=== PATIENT | male | born 1950 | race Caucasian/White ===

== ENCOUNTER 2018-03-13 09:47 | Inpatient (IN) | payer BC, OTHER ==
--- NOTE | 2018-03-13 10:24 | CPEKG ---
Heart Rate: 125 RR Interval: 480 QRSD Interval: 90 QT Interval: 300 QTC Interval: 433 QRS Grawn: 36 T Wave Grawn: 179 EKG Severity - ABNORMAL ECG - EKG Impression: A-FLUTTER W/ PREDOM 2:1 AV BLOCK, A-RATE 272 Electronically Signed By: Lamont Bell 14-Mar-2018 22:17:36
[2018-03-13 10:37] LABS: PLATELET COUNT 271 10^3/uL (150-400)
--- NOTE | 2018-03-13 10:37 | EDPHY ---
HPI/HX/ROS/PE/MDM Narrative: CHIEF COMPLAINT: "I haven't felt good all week," cough HPI: The patient is an anticoagulated 68 y/o male with a history of atrial fibrillation and COPD complaining of malaise and severe cough for the last week. He arrived here from [place] Saturday, 2 days ago. His symptoms have become progressively worse and last night he was "coughing all night and my lungs are rattling." He feels off-balance when walking and has felt feverish. He denies abdominal pain, vomiting, diarrhea, chest pain, urinary symptoms. REVIEW OF SYSTEMS: Aside from elements discussed in the HPI, a comprehensive 10-point review of systems was reviewed and is negative. PMH: Atrial fibrillation - warfarin, sleep apnea - CPAP, COPD, bladder cancer, kidney cancer, nephrectomy, gout, L hip replacement, R knee replacement SOCIAL HISTORY: . From [place], arrived Saturday. PHYSICAL EXAM: General:Patient is alert, in no acute distress. Obese. HR 127, SpO2 88% on room air, BP 93/54. ENT:Eyes are normal to inspection. ENT inspection normal. Neck: Normal inspection. Full range of motion. Respiratory:No respiratory distress. Mild expiratory wheezing bilaterally. Cardiovascular: Tachycardic irregular rate and rhythm. Strong peripheral pulses. Normal cap refill. Abdomen:The abdomen is nontender to palpation. There are no peritoneal signs. Back: Normal to inspection. No tenderness to palpation. Skin: Normal color. No rash. Warm and dry. Extremities: Normal appearance. Full range of motion. Neuro: Oriented x3. Normal motor function. Normal sensory function. ED Course: This is a 68 y/o male with a history of atrial fibrillation and COPD who presents with a 1-week history of malaise and cough progressively worsening since onset. He feels feverish and generally fatigued. He has mild expiratory wheezing bilaterally and a tachycardic irregular heart rate. Suspect infectious pulmonary process. Plan for IV, labs, EKG, chest x-ray. Chest x-ray: ARACELIS pneumonia He rules in for severe sepsis with tachycardia, hypotension, elevated WBC, and source of infection. He remains afebrile here. 1gm IV Ceftriaxone and IV NS bolus ordered. Spoke with hospitalist service. Dr. Freed accepts admission for pneumonia and severe sepsis. - Data Points Imaging Results: Imaging Impressions Chest X-Ray 03/13/18 10:29 Impression: 1. Left upper lobe pneumonia. Follow-up radiography is recommended to ensure clearing, and exclude an underlying mass. 2. Borderline CHF. Imaging: I viewed and interpreted images myself Laboratory Results: Laboratory Results 03/13/18 10:19 03/13/18 03/13/18 03/13/18 10:20 10:19 10:19 WBC 15.84 10^3/uL H 10^3/uL (3.80-9.50) RBC 4.37 10^6/uL L 10^6/uL (4.40-6.38) Hgb 13.3 g/dL L g/dL (13.7-17.5) Hct 39.0 % L % (40.0-51.0) MCV 89.2 fL fL (81.5-99.8) MCH 30.4 pg pg (27.9-34.1) MCHC 34.1 g/dL g/dL (32.4-36.7) RDW 15.0 % % (11.5-15.2) Plt Count 271 10^3/uL 10^3/uL (150-400) MPV 10.4 fL fL (8.7-11.7) Neut % (Auto) 85.6 % H % (39.3-74.2) Lymph % (Auto) 5.5 % L % (15.0-45.0) [place] % (Auto) 7.8 % % (4.5-13.0) Eos % (Auto) 0.0 % L % (0.6-7.6) Baso % (Auto) 0.1 % L % (0.3-1.7) Nucleat RBC Rel Count 0.0 % % (0.0-0.2) Absolute Neuts (auto) 13.56 10^3/uL H 10^3/uL (1.70-6.50) Absolute Lymphs (auto) 0.87 10^3/uL L 10^3/uL (1.00-3.00) Absolute Monos (auto) 1.23 10^3/uL H 10^3/uL (0.30-0.80) Absolute Eos (auto) 0.00 10^3/uL L 10^3/uL (0.03-0.40) Absolute Basos (auto) 0.02 10^3/uL 10^3/uL (0.02-0.10) Absolute Nucleated RBC 0.00 10^3/uL 10^3/uL (0-0.01) Immature Gran % 1.0 % % (0.0-1.1) Immature Gran # 0.16 10^3/uL H 10^3/uL (0.00-0.10) Sodium Pending Potassium Pending Chloride Pending Carbon Dioxide Pending Anion Gap Pending BUN Pending Creatinine Pending Estimated GFR Pending Glucose Pending Calcium Pending POC Troponin I 0.02 ng/mL ng/mL (0.00-0.08) Point of Care Test Results: Chemistry 03/13/18 10:20 POC Troponin I 0.02 ng/mL ng/mL (0.00-0.08) General Time Seen by Provider: 03/13/18 10:17 Initial Vital Signs: Initial Vital Signs Temperature (C) 37.5 C 03/13/18 09:59 Heart Rate 127 H 03/13/18 09:59 Respiratory Rate 24 H 03/13/18 09:59 Blood Pressure 93/54 L 03/13/18 09:59 O2 Sat (%) 88 L 03/13/18 09:59 O2 Delivery Mode Room Air O2 (L/minute) 2 Allergies/Adverse Reactions: No Known Allergies Allergy (Unverified 03/13/18 09:56) Departure - Departure Disposition: [facility] Inpatient Acute Clinical Impression: Severe sepsis, Hypoxemia Pneumonia Qualifiers: Pneumonia type: due to unspecified organism Laterality: left Lung location: upper lobe of lung Qualified Code(s): J18.1 - Lobar pneumonia, unspecified organism Condition: Fair Referrals: JONATHAN GRANT [Other] - As per Instructions Report Scribed for: Lamont Bell Report Scribed by: Iris Ochoa Date of Report: 03/13/18 Time of Report: 10:18 Physician Review and Approval Statement: Portions of this note were transcribed by an ED scribe. I personally performed the history, physical exam, and medical decision making; and confirm the accuracy of the information in the transcribed note.
[2018-03-13] MEDS ORDERED: NS 2,900 ML IV ONE (10:52)
[2018-03-13] MEDS ORDERED: ONDANSETRON DISINTEGRATING 4 MG TAB PO PRN (11:36)
[2018-03-13] MEDS ORDERED: ONDANSETRON 4 MG/2 ML VIAL IVP PRN (11:36)
[2018-03-13] MEDS ORDERED: ACETAMINOPHEN 325 MG TAB PO PRN (11:36)
[2018-03-13] MEDS ORDERED: ALBUTEROL 3 ML DEYVIAL IH PRN (11:36)
[2018-03-13] MEDS ORDERED: TEMAZEPAM 15 MG CAP PO PRN (11:36)
[2018-03-13] MEDS ORDERED: IPRATROPIUM/ALBUTEROL 3 ML DEYVIAL IH PRN (11:36)
[2018-03-13] MEDS ORDERED: NS 1,000 ML IV SCH (11:45)
[2018-03-13] MEDS ORDERED: ALBUTEROL 60 PUFFS/8 GM MDI IH PRN (13:41)
[2018-03-13] MEDS: NICOTINE 21 MG/24 HR PATCH TD SCH (14:15)
[2018-03-13] MEDS: guaiFENesin 600 MG TAB.ER PO SCH ×2 (14:15→22:24)
[2018-03-13] MEDS: HYDROCODONE/APAP 5/325 TAB PO PRN ×2 (14:19→22:24)
--- NOTE | 2018-03-13 16:36 | PDGENHP ---
History and Physical - Chief Complaint cough, hard time breathing - History of Present Illness 68 yo male from [place], here visiting his son. Arrived 3 days ago, drove here with his . Started to feel sick a day or two prior to trip. Coughing, hard to breathe, feels sick, no energy. Denies f/v/d/CP. Says PCP Dr Vince Felton in [place]. History Information - Allergies/Home Medication List Allergies/Adverse Reactions: No Known Allergies Allergy (Verified 03/13/18 11:39) Home Medications: Albuterol [Proventil Inhaler HFA (*)] 1 - 2 puffs IH Q4-6PRN PRN 03/13/18 [Last Taken 03/13/18] Allopurinol [Allopurinol 300 MG (RX)] 300 mg PO DAILY 03/13/18 [Last Taken 03/13] Atorvastatin Calcium [Lipitor 20 mg (*)] 20 mg PO HS 03/13/18 [Last Taken ] Cholecalciferol Vit D3 [Vitamin D3 (*)] 1,000 units PO DAILY 03/13/18 [Last Taken 03/13/18] Citalopram Hydrobromide [Celexa] 40 mg PO HS 03/13/18 [Last Taken 03/12/18] DULoxetine [Cymbalta 60 MG (*)] 60 mg PO DAILY 03/13/18 [Last Taken 03/13/18] Ezetimibe [Zetia 10 MG (*)] 10 mg PO DAILY 03/13/18 [Last Taken 03/12/18] Fluticasone/Salmeter 250/50Mcg [Advair 250/50 (*)] 1 puffs IH BID 03/13/18 [ Last Taken 03/13/18] Gabapentin [Neurontin 300 MG (*)] 300 mg PO HS 03/13/18 [Last Taken 03/12/18] Herbals/Supplements -Info Only 1 ea PO DAILY 03/13/18 [Last Taken Unknown] Hydrochlorothiazide [HCTZ (*)] 25 mg PO DAILY 03/13/18 [Last Taken 03/12/18] Hydrocodone/APAP 5/325 [[place] 5/325 (*)] 1 each PO BID PRN 03/13/18 [Last Taken Unknown] Lansoprazole [Prevacid] 30 mg PO DAILY 03/13/18 [Last Taken 03/13/18] Lisinopril [Zestril 20 mg (*)] 20 mg PO DAILY 03/13/18 [Last Taken 03/13/18] Metoprolol Tartrate [Lopressor 50 mg (*)] 75 mg PO BID 03/13/18 [Last Taken 01/24] Naproxen Sodium [Aleve 220 MG (*)] 220 mg PO BID PRN 03/13/18 [Last Taken Unknown] Nicotine [Nicoderm Cq 21 mg (*)] 21 mg TD DAILY 03/13/18 [Last Taken Unknown] SITAGLIPTIN PHOSPHATE [Januvia 50 mg] 50 mg PO DAILY 03/13/18 [Last Taken ] Tiotropium Inhaler [Spiriva Inhaler] 1 inh IH DAILY 03/13/18 [Last Taken ] Vardenafil HCl [Levitra] 20 mg PO DAILY PRN 03/13/18 [Last Taken Unknown] Warfarin Sodium [Coumadin 5MG (*)] 5 mg PO MOTUWEFRSA@03/13/18 [Last Taken ] Warfarin Sodium [Coumadin 7.5MG (*)] 7.5 mg PO SUTH@03/13/18 [Last Taken 09/26] guaiFENesin [Mucinex 600 MG (*)] 600 mg PO BID 03/13/18 [Last Taken 03/13/18] rOPINIRole HCL [Requip 5mg (*)] 5 mg PO HS 03/13/18 [Last Taken 03/12/18] I have personally reviewed and updated: medical history, social history, surgical history - Past Medical History atrial fibrillation, cancer (transitional cell cancer of bladder, renal cell cancer), diabetes type 2, GERD, hypertension, hyperlipidemia Additional medical history: obesity, untreated sleep apnea, PVD, 'esophageal lesion', depression, > 30 pk yr TOB, chronic pain with chronic opioid use (but says he leaves them at home when driving), stage 3 CKD, gout, FSGS (spoke with his PCP office, requested recent records to be faxed here) - Surgical History Additional surgical history: R nephrectomy and partial bladder resection, TKA, RASHMI, toe surgery - Social History Smoking Status: Heavy smoker Alcohol Use: Occasionally (says 1-2 drinks a week but 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') Review of Systems Review of Systems: ROS: 10pt was reviewed & negative except for what was stated in HPI & below Physical Exam Physical Exam: Temp Pulse Resp BP Pulse Ox 98.7 F 137 H 20 108/82 H 88 L 03/13/18 13:02 03/13/18 14:34 03/13/18 14:34 03/13/18 13:02 03/13/18 14:34 O2 (L/minute) 10 Constitutional: chronically ill appearing, obese Eyes: anicteric sclera, EOMI Ears, Nose, Mouth, Throat: moist mucous membranes, hearing normal Cardiovascular: tachycardia, edema (1+B) Respiratory: respiratory distress, rhonchi, No expiratory wheeze Gastrointestinal: normoactive bowel sounds, soft, non-tender abdomen, no palpable masses, other (obese), No guarding, No rebound, No distension Skin: warm, normal color Musculoskeletal: other (MAYNARD) Neurologic: other (non focal) Psychiatric: interacting appropriately, not anxious, not encephalopathic, thought process linear Lab Data & Imaging Review 03/13/18 10:19 03/13/18 10:19 WBC 15.84 10^3/uL (3.80-9.50) H 03/13/18 10:19 RBC 4.37 10^6/uL (4.40-6.38) L 03/13/18 10:19 Hgb 13.3 g/dL (13.7-17.5) L 03/13/18 10:19 Hct 39.0 % (40.0-51.0) L 03/13/18 10:19 MCV 89.2 fL (81.5-99.8) 03/13/18 10:19 MCH 30.4 pg (27.9-34.1) 03/13/18 10:19 MCHC 34.1 g/dL (32.4-36.7) 03/13/18 10:19 RDW 15.0 % (11.5-15.2) 03/13/18 10:19 Plt Count 271 10^3/uL (150-400) 03/13/18 10:19 MPV 10.4 fL (8.7-11.7) 03/13/18 10:19 Neut % (Auto) 85.6 % (39.3-74.2) H 03/13/18 10:19 Lymph % (Auto) 5.5 % (15.0-45.0) L 03/13/18 10:19 [place] % (Auto) 7.8 % (4.5-13.0) 03/13/18 10:19 Eos % (Auto) 0.0 % (0.6-7.6) L 03/13/18 10:19 Baso % (Auto) 0.1 % (0.3-1.7) L 03/13/18 10:19 Nucleat RBC Rel Count 0.0 % (0.0-0.2) 03/13/18 10:19 Absolute Neuts (auto) 13.56 10^3/uL (1.70-6.50) H 03/13/18 10:19 Absolute Lymphs (auto) 0.87 10^3/uL (1.00-3.00) L 03/13/18 10:19 Absolute Monos (auto) 1.23 10^3/uL (0.30-0.80) H 03/13/18 10:19 Absolute Eos (auto) 0.00 10^3/uL (0.03-0.40) L 03/13/18 10:19 Absolute Basos (auto) 0.02 10^3/uL (0.02-0.10) 03/13/18 10:19 Absolute Nucleated RBC 0.00 10^3/uL (0-0.01) 03/13/18 10:19 Immature Gran % 1.0 % (0.0-1.1) 03/13/18 10:19 Immature Gran # 0.16 10^3/uL (0.00-0.10) H 03/13/18 10:19 VBG Lactic Acid 1.6 mmol/L (0.7-2.1) 03/13/18 11:05 Sodium 134 mEq/L (135-145) L 03/13/18 10:19 Potassium 4.3 mEq/L (3.3-5.0) 03/13/18 10:19 Chloride 96 mEq/L (97-110) L 03/13/18 10:19 Carbon Dioxide 19 mEq/l (22-31) L 03/13/18 10:19 Anion Gap 19 mEq/L (8-16) H 03/13/18 10:19 BUN 70 mg/dL (7-23) H 03/13/18 10:19 Creatinine 3.0 mg/dL (0.7-1.3) H 03/13/18 10:19 Estimated GFR 21 03/13/18 10:19 Glucose 121 mg/dL (70-100) H 03/13/18 10:19 Calcium 8.4 mg/dL (8.5-10.4) L 03/13/18 10:19 Magnesium 1.9 mg/dL (1.6-2.3) 03/13/18 10:19 POC Troponin I 0.02 ng/mL (0.00-0.08) 03/13/18 10:20 Visualized and Interpreted Chest x-ray results: Yes Chest X-Ray results: infiltrate Visualized and Interpreted EKG results: Yes EKG Interpretation: Positive for: other (a fib/a flutter) Assessment & Plan Assessment: Hypoxemia (Acute) -worsening, transfer to SDU -may need bipap/cpap -ABG ordered Pneumonia (Acute) RUL -given a dose of rocephin in ER -will continue to treat for CAP but concerning it is in RUL latoya with cancer prev -will ask pulm to eval Severe sepsis (Acute) -transfer to SDU acute on chronic renal failure -2 was last creat per PCP office -spoke with Dr Smallwood, renal, he will see pt -gentle hydration for now a-fib, chronic anti-coag -continue with coumadin, pharm to dose chronic pain -off meds, watch for withdrawal -prn ordered type 2 DM -ssi obesity gout HTN PVD depression TOB use- nicotine patch PCP- OOT, Dr Vince Felton in [facility] DVT prophy- chronic anti coag FULL CODE >2 mdnts bc of serious illness/sepsis
[2018-03-13] MEDS ORDERED: D50W 25 GM/50 ML VIAL IVP PRN (16:57)
[2018-03-13 17:14] LABS: PROTIME(PATIENT) 91.6 SEC (12.0-15.0)
[2018-03-13 17:15] LABS: INR 12.4 (0.83-1.16)
[2018-03-13] MEDS: INSULIN REGULAR HUMAN 100 UNIT/ML UNIT SC SCH ×2 (18:06→21:31)
[2018-03-13 18:47] LABS: INR 12.92 (0.83-1.16); PROTIME(PATIENT) 94.5 SEC (12.0-15.0)
[2018-03-13] MEDS ORDERED: LORazepam 2 MG/ML INJ ONE (19:18)
[2018-03-13] MEDS ORDERED: FUROSEMIDE 20 MG/2 ML VIAL IVP ONE (19:22)
[2018-03-13] MEDS ORDERED: methylPREDNISolone SOD SUCC 125 MG/2 ML VIAL IVP ONE (19:24)
[2018-03-13] MEDS ORDERED: FUROSEMIDE 100 MG/10 ML VIAL ONE (19:24)
[2018-03-13] MEDS ORDERED: FUROSEMIDE 20 MG/2 ML VIAL ONE (19:28)
[2018-03-13] MEDS ORDERED: methylPREDNISolone SOD SUCC 125 MG/2 ML VIAL ONE (19:28)
[2018-03-13] MEDS: LORazepam 2 MG/ML INJ IVP PRN (19:30)
[2018-03-13] MEDS ORDERED: PHYTONADIONE 2.5 MG/2.5 ML ORAL UDL PO ONE (19:30)
--- NOTE | 2018-03-13 19:37 | HOSPPROG ---
Hospitalist Progress Note Assessment/Plan: was called urgently to bedside as the patient is going into respiratory failure. The patient admitted earlier today for ARACELIS pneumonia with criteria for sepsis. He was started on IV abx. IVF were given (over 3 L) per sepsis protocol. A review of the initial CXR shows ARACELIS infiltrate as well as some CHF. On exam he appears to have worsening CHF. This was confirmed by CXR. He also has a hx of daily tobacco use and active wheezing on exam. BP is significantly better and now in the 160's systolic. VS reviewed GEN: ANXIOUS CV: IRR, +JVD RESP: RALES, INCREASED WORK OF BREATHINGS, WHEEZING ABD: OBESE, S/NT/ND 1)Res Failure 2)ARACELIS pneumonia 3)CHF with exacerbation with volume overload 4)possible COPD with exacerbation 5)Afig 6)coagulopathy, no active signs of bleeding but INR is 12 7)Acute renal Failure Plan: BiPAP Lasix steroids cont abx stop fluids schedule duonebs may need more Lasix, will determine clinical response Vit K given very high INR which value was reconfirmed TTE Morales Strict I's and O's total critical care time is 45 minutes Objective: Vital Signs Temp Pulse Resp BP Pulse Ox 37.1 C 139 H 19 143/86 H 90 L 03/13/18 18:12 03/13/18 18:12 03/13/18 18:12 03/13/18 18:12 03/13/18 18:12 Laboratory Results 03/13/18 15:55 03/12/18 03/13/18 03/14/18 05:59 05:59 05:59 Output Total 250 Balance -250 PT 94.5 SEC (12.0-15.0) H 03/13/18 17:30 INR 12.92 (0.83-1.16) H* 03/13/18 17:30 ICD10 Worksheet Patient Problems: Problems Problem Status Onset Hypoxemia Acute Pneumonia Acute Severe sepsis Acute
[2018-03-13] MEDS: METOPROLOL TARTRATE 5 MG/5 ML INJ IVP SCH (19:46)
[2018-03-13] MEDS ORDERED: FUROSEMIDE 40 MG/4 ML VIAL IVP ONE (20:00)
[2018-03-13] MEDS ORDERED: AMIODARONE A.FIB-6HR INFSN (ORDER 2/3) PREMIX IV ONE (20:30)
[2018-03-13] MEDS ORDERED: AMIODARONE A.FIB-LOAD DOSE(ORDER 1/3) PREMIX IV ONE (20:30)
[2018-03-13] MEDS ORDERED: WARFARIN SODIUM 7.5 MG TAB PO SCH (21:00)
[2018-03-13] MEDS: FLUTICASONE/SALMETER 250/50MCG DISKUS IH SCH (21:57)
[2018-03-13] MEDS ORDERED: IPRATROPIUM/ALBUTEROL 3 ML DEYVIAL IH SCH (22:00)
--- NOTE | 2018-03-13 22:07 | GHP ---
[f rep st] HISTORY AND PHYSICAL DATE OF ADMISSION: 03/13/2018 REFERRING PHYSICIAN: Alessandra Freed MD REASON: Acute on chronic renal failure and respiratory failure, shock. HISTORY OF PRESENT ILLNESS: The patient is a 68-year-old male visiting from [place]. Upon arri jacqueline here, he developed some shortness of breath and cough and came into the emergency department, whe reupon he was found to have hypotension, tachycardia, and a dense left upper lobe infiltrate. He has received 3 L of IV fluid. His initial oxygen requirement was 3 L, but over the course of his admiss ion has increased to 13 L by OxyMask, and he is now in some respiratory distress. He has a prior nep hrectomy due to transitional cell cancer with a baseline creatinine of 1.3 in January of this year. He c arries a diagnosis of FSGS and protein to creatinine ratio was 1000 mg in January as well. His creatinin e here was 3 on admission and with fluid has come down to 2.5. He has made only 100 cc of urine thus far. He also has a history of diabetes mellitus on oral medications, peripheral vascular disease, c oronary artery disease, atrial fibrillation on anticoagulation, and COPD as well as sleep apnea, arth ritis depression, gout. Here, his blood pressures have been in the 90s to low 100s; however, now they are up in the 160s. He is unable to give much in the way of history. Also, I am not able to hold a good conversation as he is on BiPAP at this time and quite dyspneic. He denies any productive cough, but he has been feel ing sweaty. He has had some nausea, vomiting, and diarrhea. His heart rate here has been fast in e 120s to 130s. We were asked to help evaluate and manage his renal failure. PAST MEDICAL HISTORY: See HPI. PAST SURGICAL HISTORY: Coronary angiography, 2012. Knee scopes. Right nephroureterectomy in 2009. Tonsils. HOME MEDICATIONS: Allopurinol, [place], Coumadin, Spiriva, NicoDerm, Levitra, Januvia, Cymbalta, Requi p, Prevacid, Neurontin, Celexa, hydrochlorothiazide 25 mg, allopurinol 300 mg, Lipitor, Daliresp, Lop ressor 75 mg b.i.d., Proventil, Advair, lisinopril 20 mg, and Zetia. CURRENT MEDICATIONS: Include ceftriaxone 2 g IV daily, otherwise as in chart. SOCIAL HISTORY: He is an active, or at least was an active smoker as of September of this year with a 21-ibuf-buur history. Does not drink heavily. Smokes about a pack to a pack and a half per day. FAMILY HISTORY: Notable for heart disease in mother, sister. REVIEW OF SYSTEMS: See HPI. Otherwise, did not obtain as patient was in acute respiratory distress on BiPAP, getting ready to move to the ICU. PHYSICAL EXAMINATION: VITAL SIGNS: 143/86, heart rate 139, respiratory rate 19, 90% on 13 L OxyMask , temp 37 Celsius, T-max 37.5. GENERAL: Upper middle aged male on BiPAP mask in respirato ry distress who is awake, alert, and answers questions appropriately. EYES: Sclerae nonicteric. Or al mucosa moist. NECK: He wears a zepeda. HEART: Tachycardic, difficult to assess whether regular or not. No murmurs, gallops, rubs. LUNGS: With diffuse coarse crackles. No wheezes. ABDOMEN: Ob franca, soft, and nontender. No hepatomegaly. No rebound or guarding. EXTREMITIES: His hands and fee t are warm and diaphoretic. Dorsalis pedis pulses trace bilaterally. SKIN: Diaphoretic without chantal hes. MUSCULOSKELETAL: No gross joint swelling or deformities. NEUROLOGICAL: No gross focal defici ts. LABS: Urine has not been sent. Sodium 135, potassium 4.6, CO2 of 21, BUN 68, creatinine 2.6, calciu m 7.6. LFTs pending. White count 15.8, hemoglobin 13, platelets 271, neutrophils 86%. INR was 12.4 . Blood gas was 7.36, 30, 61, 18. Chest x-ray which I personally reviewed shows a dense left upper lobe infiltrate. IMPRESSION AND PLAN: 1. Acute on chronic renal failure. He is hypotensive and tachycardic. He has had some nausea and v omiting and probably has a pneumonia. He takes lisinopril as well as hydrochlorothiazide. It is pro bable that this represents a prerenal state or acute tubular necrosis related to the above. I will o btain urinalysis and a renal ultrasound to rule out obstruction and an active urine sediment. He has underlying focal segmental glomerulosclerosis which based on his protein level is probably secondary . He has a solitary kidney due to prior nephrectomy. I think it is less likely that he has a pulmon kevin renal syndrome, although this will better be clarified once we have a urinalysis. I do not think he has a clear indication for acute hemodialysis tonight. I think his respiratory failure may requi re intubation. However, this appears to be at least in large part related to a pneumonia rather than just IV fluid. He will be given Lasix. He may require dialysis within the next 24-hour period. Av oid IV contrast dye, nephrotoxins, and use vasopressors as necessary to keep mean arterial pressure a cameron 60 to 65. 2. Acute respiratory failure. He appears to have pneumonia. He has worsened after IV fluid resusci tation of 3 L. He will receive some IV Lasix. He has known coronary disease. He may have diastolic dysfunction and it is not clear if he has cardiac dysfunction. An echo would be appropriate. He is on BiPAP. He appears to be in distress. He may require intubation tonight. He may also have a com ponent of chronic obstructive pulmonary disease, although his pCO2 is actually low, not high, and he does not sound wheezy at all. He is receiving high-dose IV steroids. He may need broadened antibiot ic coverage. He will need a CT scan to further evaluate his dense infiltrate. 3. Possibly sepsis. Possibly related to atrial fibrillation with rapid rate. He may req uire a pressor to help control his heart rate if IV diltiazem is used. His tachycardia may just be r eactive to a sepsis presentation. He has received ample IV fluid and this should be stopped at this time. He will receive a dose of IV Lasix as well as morphine in case he has pulmonary edema. 4. Tachycardia. He has known atrial fibrillation. See above. 5. Coagulopathy. His INR is greater than 12. Coumadin is held. He would benefit from vitamin K wh ich I will defer to the primary service. 6. Acidosis. He has very mild acidemia that is primarily metabolic. He is able to blow off CO2, ar guing against this being an acute chronic obstructive pulmonary disease exacerbation. I did spend greater than 30 minutes from 7:15 to 7 DICTATION ENDS HERE /[id number]/[id number]
[2018-03-13] MEDS: GABAPENTIN 300 MG CAP PO SCH (22:24)
[2018-03-13] MEDS: CITALOPRAM 20 MG TAB PO SCH (22:24)
[2018-03-14] MEDS: methylPREDNISolone SOD SUCC 125 MG/2 ML VIAL IVP SCH ×3 (00:23→13:44)
--- NOTE | 2018-03-14 00:47 | GCON ---
[f rep st] CONSULTATION PULMONARY CRITICAL CARE CONSULTATION DATE OF CONSULTATION: 03/13/2018 REASON FOR CONSULTATION: Left upper lobe pneumonia, sepsis, acute respiratory failure. HISTORY OF PRESENT ILLNESS: The patient is a very pleasant 68-year-old visiting family from [place], [place]. He has multiple underlying medical problems. He had cough and chest congestion p rior to leaving [place] on Saturday. His symptoms persisted and worsened. He presented to the em ergency department this morning with persistent cough and shortness of breath. He had subjective fev ers. He was found to be in atrial fibrillation. He was mildly hypoxemic on room air with borderline blood pressures. Chest x-ray revealed a left upper lobe infiltrate consistent with pneumonia. He w as started on antibiotics and admitted. The sepsis protocol was utilized. He was admitted to the in tensive care unit as a step-down patient but transitioned up to ICU status secondary to increasing re spiratory failure. BiPAP was needed. He was seen by Renal who gave him 80 mg of Lasix and some morp linda. With this, his respiratory status improves significantly. He has had significant urine output since. He has a history of chronic obstructive pulmonary disease, previous atrial fibrillation, and a single kidney secondary to renal cell carcinoma. Regarding his COPD, he takes albuterol and Advair. He is not on oxygen. He continues to smoke cigarettes. Baseline creatinine with his single kidney is franny arently 1.5. On admission, he was 3.0. Following Lasix, he has continued to improve. He has been able to come off BiPAP. He feels signific antly better than he did this morning. He is conversant, in no distress. He still has some pulmonar y congestion but this has improved. He is not currently bringing up any mucus. Atrial fibrillation was converted with IV amiodarone. PAST MEDICAL HISTORY: Is remarkable for chronic obstructive pulmonary disease, previous atrial fibri llation at the time of his nephrectomy, systemic hypertension, hyperlipidemia, gastroesophageal reflu x disease, and type 2 diabetes. He has a history of sleep apnea but does not use CPAP. Other medica l problems include obesity and gout. 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 SOCIAL HISTORY: The patient has smoked for many years and continues to smoke approximately 1 pack of cigarettes per day. He is now thinking of quitting. He has family who lives in this area, a son. He has visited here before without significant problems. He lived in [place] for 8 years. Significant alcohol is negative at this point in time. FAMILY HISTORY: Noncontributory. REVIEW OF SYSTEMS: A 10-point review of systems was negative except as outlined above. MEDICATIONS: On admission were reviewed. These included [place], albuterol by metered-dose inhaler, S piriva, Advair, Coumadin, guaifenesin, Aleve, allopurinol, hydrochlorothiazide, gabapentin, Zetia, Cy mbalta, Lipitor, Requip, Januvia, Lopressor, Zestril, Prevacid, Celexa, Nicoderm patch, and p.r.n. Le vitra. PHYSICAL EXAMINATION: GENERAL: Reveals a pleasant gentleman who is awake, alert, conversant and franny ropriate. He is in good spirits. VITAL SIGNS: Blood pressure is currently 120/80, heart rate 95 wi th sinus rhythm on the monitor. Respiratory rate is 26. On a 10 L OxyMask, saturations are 92%. He is afebrile. HEENT: Unremarkable for lymphadenopathy or thyromegaly. There is no obvious jugular venous distention. Mucous membranes are somewhat dry. CHEST: Reveals decreased breath sounds bilat erally. Breath sounds are coarse over the left upper lobe and there are some consolidative changes. Central congestion is present with cough. Expiratory phase is prolonged. HEART: Regular in rate a nd rhythm. A systolic murmur is present. There are no obvious gallops. P2 appears to be mildly inc reased. ABDOMEN: Soft and nontender. Bowel sounds are present. He is quite obese. EXTREMITIES: Unremarkable for significant edema. There are no obvious cords or tenderness. LABORATORY DATA: Chest x-rays show progression of his left upper lobe infiltrate from this morning t o this evening. White blood cell count is 15,800, hematocrit 39, platelets 271,000. INR repeated x2 is 12. Arterial blood gas showed a pCO2 of 30 and a pO2 of 61 with a pH of 7.36. Lactate was 1.6. CO2 was 17. Sod ium 135, potassium 4.6, CO2 is 21, current creatinine is 2.6 with a BUN of 68. Anion gap is 15. Glu cose is 139. Liver function studies are normal. Troponin is negative. Albumin is 2.9. Urinalysis had some red cells. No white blood cells were noted. ASSESSMENT: 1. Left upper lobe pneumonia. This appears to be a community-acquired pneumonia. He has received c eftriaxone. Zithromax is being held secondary to his atrial fibrillation. Albuterol is being given by nebulizer on a p.r.n. basis. Xopenex may be a better choice in light of his supraventricular tach ycardia. 2. Volume overload. The patient was aggressively hydrated per the sepsis protocol on admission. Hi s single kidney could not take the volume load, and he became increasingly short of breath and hypoxe rober. This has now resolved with the administration of Lasix. He is currently doing well on a simple mask. BiPAP was used transiently and can be used again if needed. 3. Chronic obstructive pulmonary disease. The patient has smoked for many years. Inhaled medicatio ns including Spiriva, Advair and albuterol are appropriate. Xopenex by nebulizer may be less cardio stimulatory then albuterol and will be used. 4. Atrial fibrillation: He has had this before. He has been converted on amiodarone. 5. Anticoagulation. INR is supratherapeutic. He has been given vitamin K. There is no evidence of active bleeding. PT and INR will be followed. Coumadin will be held. 6. Sepsis. Blood pressures were low on admission, and he met criteria for initiation of sepsis prot ocol. With intravenous fluids, his blood pressures have normalized. He has required Lasix. Lactate was not significantly elevated. He is doing well currently and sepsis appears to be resolving. 7. History of other medical problems as outlined in the HPI. RECOMMENDATIONS: The patient should be kept in the intensive care unit. Albuterol including DuoNebs will be stopped. Xopenex will be given by nebulizer as it is less cardio stimulatory in this gentle man with atrial fibrillation. Spiriva will be continued as the anti-cholinergic. Albuterol by meter ed-dose inhaler can be used on a p.r.n. basis if needed. Amiodarone should be continued per protocol s. Antibiotics will be continued. Steroids will be continued. I would recommend reducing these leroy rly rapidly if acute bronchospasm is resolving as it appears to be. I anticipate that elevated blood sugars may become a significant issue. Fluids should be used judiciously and Lasix diuresis needs t o be maintained. Renal has seen the patient and will continue to follow him. Coumadin should be hel d and INR followed. A CT scan of the chest without contrast is recommended for the morning to better evaluate his left upper lobe, however, after reviewing the x-rays I think this is unlikely to be a m ass lesion just dense consolidation. Laboratory will be followed. Further plans and recommendations will be made based on his progress over the next 12-24 hours. /[id number]/MODL
[2018-03-14] MEDS: METOPROLOL TARTRATE 5 MG/5 ML INJ IVP SCH ×5 (01:15→23:12)
[2018-03-14] MEDS ORDERED: AMIODARONE A.FIB-18HR INFSN (ORDER 3/3) IV ONE (02:30)
[2018-03-14 05:26] LABS: INR 8.3 (0.83-1.16); PROTIME(PATIENT) 67.4 SEC (12.0-15.0)
[2018-03-14] MEDS: LEVALBUTEROL 1.25 MG/3 ML DEYVIAL IH SCH ×4 (05:49→19:50)
[2018-03-14] MEDS: INSULIN REGULAR HUMAN 100 UNIT/ML UNIT SC SCH ×4 (08:12→20:51)
[2018-03-14] MEDS: DULoxetine 60 MG CAP PO SCH (08:13)
[2018-03-14] MEDS: guaiFENesin 600 MG TAB.ER PO SCH ×2 (08:13→20:03)
[2018-03-14] MEDS: ALLOPURINOL 300 MG TAB PO SCH (08:13)
[2018-03-14] MEDS: NICOTINE 21 MG/24 HR PATCH TD SCH (08:13)
[2018-03-14] MEDS: HYDROCODONE/APAP 5/325 TAB PO PRN ×3 (08:19→19:26)
[2018-03-14] MEDS ORDERED: LANSOPRAZOLE SUSP 3 MG/ML UDSYR (Peds) PO SCH (09:00)
--- NOTE | 2018-03-14 09:12 | ASMTCMCOM ---
CM Note CM Note Notes: Patient visiting [place] from [place]. He was feeling unwell before they made the trip and now has PNA. He has a significant renal and cardiac medical hx including solitary kidney, AFib, and CAD. He is being followed closely by RT and pulmonology. He is here with his and their son. I don't anticipate any Case Management needs, but we will follow. Date Signed: 03/14/2018 09:11 AM Electronically Signed By:Ruby Hearn RN
--- NOTE | 2018-03-14 09:50 | PDMN ---
Medical Necessity Medical necessity: M326 ARF- 3 days,, M282 cPNA- . acute on chronic renal failure - pt is hypotensive and tachycardic, N/V, pt with solitary kidney due to prior nephrectomy. , min. urine output( 100 cc) pt also with acute resp. failure, worsening after IV fluids, pt with known CAD, on BiPAP appears to be in distress, cough, SOB, , may require intubation. ? sepsis, poss. r/t a-fib with rapid rate. Coagulopathy, acidosis. HX of DM, COPD, NESTOR, arthritis, depression, gout. anticipate > 2 MN ongoing med nec. care
[2018-03-14] MEDS: FLUTICASONE/SALMETER 250/50MCG DISKUS IH SCH ×2 (11:33→19:51)
[2018-03-14] MEDS: TIOTROPIUM INHALER 18 MCG/DOSE 5 DOSE/MDI IH SCH (11:33)
--- NOTE | 2018-03-14 11:55 | SOAPPROG ---
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 Cr up to 3 on presentation yesterday, down to 2.1 today, lytes ok, volume status ok. He was given 3L NS in ER and had respiratory decompensation, got Lasix. He likely has ATN in setting of N/V, hypotension, tachycardia. Could have pulmonary-renal syndrome but renal function seems to be responding quickly. - No need for HD. - Based on CT results this am, will not give another dose of Lasix, but could be considered if needed. - Avoid hypotension and nephrotoxins. - Will continue to monitor. - No need for additional IVFs at this time. - Holding RAAS blockade and HCTZ. HTN: BP low on presentation, BP meds on hold, currently BP stable. Hyponatremia: mild, Na 133, will continue to monitor. Metabolic acidosis: in setting of SUJATA, CO2 15, will monitor for now. Subjective: Pt is off BipAP and on 10L via oxymask, feels his breathing is a lot better but still not baseline. He denies any pain, N/V. He has no swelling. Objective: Vital Signs Temp Pulse Resp BP Pulse Ox 36.5 C 93 19 129/60 H 95 03/14/18 11:26 03/14/18 11:26 03/14/18 11:26 03/14/18 11:26 03/14/18 11:26 Microbiology 03/13/18 18:10 Respiratory Panel (PCR) - Final Nasal, Sinus - Swab No Organism Detected Laboratory Results 03/14/18 04:30 03/14/18 04:30 03/13/18 03/14/18 03/15/18 05:59 05:59 05:59 Intake Total 853 Output Total 1350 750 Balance -497 -750 PT 67.4 SEC (12.0-15.0) H 03/14/18 04:30 INR 8.30 (0.83-1.16) H* 03/14/18 04:30 General: alert and oriented, no acute distress Eyes: EOMI, PERRL OP: Clear CV: RRR Resp: on oxymask, coarse breath sounds Abd: Soft, NT/ND Ext: no edema Neuro: CN II-XII grossly intact, no asterixis Psych: cooperative ICD10 Worksheet Patient Problems: Problems Problem Status Onset Hypoxemia Acute Pneumonia Acute Severe sepsis Acute
--- NOTE | 2018-03-14 11:56 | ECHO ---
[email or web address] [address] [address] Main: [phone] Fax: Transthoracic Echocardiogram Name: DRAKE SANDOVAL MR#: [id number] Study Date: 03/14/2018 Study Time: 09:27 AM Date of : 1950 Age: 68 year(s) Height: 177.8 cm (70 in.) Weight: 97.52 kg (215 lb.) BSA: 2.15 m2 Gender: Male Examination: Echo Indication: chf Image Quality: Contrast: Requested by: Bart Mckee BP: / Heart Rate: Rhythm: Indication: chf Procedure Staff Tester Operator Helper: Kristi Fritz RDCS Reading Physician: Ronald Gonzalez MD Requesting Provider: Conclusions: Normal size left ventricle. Normal global systolic LV function. EF is 61 %. No regional wall motion abnormality. Mild mitral valve leaflet calcification is present. Mild mitral valve regurgitation is present. Mild tricuspid regurgitation is present. The pulmonary artery pressure is normal. Trivial pericardial effusion. Measurements: Chambers Valvular Assessment AV/MV Valvular Assessment TV/PV Normal Normal Normal Name Value Range Name Value Range Name Value Range Ao Tiffanie (2D): 3.4 cm (1.4 cm-2.6 AV Vmax: 1.30 m/s (1 m/s-1.7 PV Vmax: 1.03 m/s (0.6 m/s-0.9 cm) m/s) m/s) IVSd (2D): 1.1 cm (0.6 cm-1.1 AV maxP mmHg ( - ) PV PGmax: 4 mmHg ( - ) cm) AV meanP mmHg ( - ) LVDd (2D): 5.2 cm (4.2 cm-5.9 JOHAN (VTI): 3.0 cm ( - ) cm) MV E Vmax: 0.92 m/s ( - ) LVDs (2D): 3.8 cm (2.1 cm-4 MV A Vmax: 0.69 m/s ( - ) cm) MV E/A: 1.33 ( - ) LVPWd (2D): 1.0 cm (0.6 cm-1 cm) MV PHT: 0.069 s ( - ) LVOTd 2.3 cm 2.3 cm mm MVA (PHT): 3.2 s ( - ) LVEF (BP): 61 % (>=55 %) RVDd(2D): 3.3 cm (1.9 cm-3.8 cmmm) Continued Measurements: Patient: DRAKE SANDOVAL Study Date: 03/14/2018 Page 1 of 2 09:27 AM Chambers Valvular Assessment AV/MV Valvular Assessment TV/PV Name Value Name Value Name Value LADs: 3.8 cm MV DecTime: 218 m/s CVP (est.): 5 mmHg LADs Lon.7 cm MV E' Septal: 0.07 m/s LA Area: 22.6 cm2 MV E/E' Septal: 13.10 LA Volume: 69 ml MV E/E' Lateral: 11.60 LA Volume Index: 32.1 ml/m2 RA Area: 19.0 cm2 Additional Vessels Name Value Ao Ascendin.7 cm Findings: Left Ventricle: Normal size left ventricle. No LV hypertrophy. Normal global systolic LV function. EF is 61 %. No regional wall motion abnormality. Unable to assess diastolic dysfunction. Right Ventricle: Normal size right ventricle. Normal RV function. Left Atrium: The left atrium is normal in size. Right Atrium: The right atrium is normal in size. Mitral Valve: The mitral valve is normal in appearance and function. Mild mitral valve leaflet calcification is present. Mild mitral valve regurgitation is present. No mitral stenosis is present. Aortic Valve: The aortic valve is tri-leaflet. There is no significant aortic valve regurgitation. No aortic valve stenosis is present. Tricuspid Valve: The tricuspid valve is normal in appearance and function. Mild tricuspid regurgitation is present. The pulmonary artery pressure is normal. Pulmonic Valve: The pulmonic valve is normal in appearance and function. There is no pulmonic regurgitation seen. Aorta: The aorta is normal. Normal size aortic root measuring 3.4 cm. Normal size ascending aorta measuring 2.7 cm. Pericardium: Trivial pericardial effusion. There is pericardial fat. No pleural effusion. (No Signature Object) Patient: DRAKE SANDOVAL Study Date: 03/14/2018 Page 2 of 2 09:27 AM [id number]
--- NOTE | 2018-03-14 14:19 | PDINTPN ---
Chart Reader Progress Note Assessment/Plan: 68 M visiting from [place] admitted 03/13 with cough, sob and hypoxemia that started prior to arrival. His CXR showed consolidation in the ARACELIS and he was treated for CAP. He was also started on the sepsis protocol but developed increasing respiratory failure and required bipap. In addition, he had atrial fibrillation with RVR and was treated with amiodarone. Because of known COPD, he was given albuterol which was subsequently changed to Xopenex, as well as Spiriva and IV steroids. * CAP- responding well to abx (CTX). Blood cx NTD and urinary legionella/strep Ag pending. CT shows PNA with no evidence of malignancy. * COPD with acute exacerbation- agree with xopenex and controller meds. Reduce steroids to daily. * Atrial fibrillation- may be able to reduce back to baseline metoprolol since converted to NSR. * Anticoag poisoning- no active bleeding and INR now < 10. I dont feel additional vitamin K or FFP is indicated at this time. Continue to hold warfarin. * OK for SDU Subjective: improved breathing/couygh today. reports black sputum at times Objective: Vital Signs Temp Pulse Resp BP Pulse Ox 36.5 C 93 19 129/60 H 95 03/14/18 11:26 03/14/18 11:26 03/14/18 11:26 03/14/18 11:26 03/14/18 11:26 Microbiology 03/13/18 18:10 Respiratory Panel (PCR) - Final Nasal, Sinus - Swab No Organism Detected Laboratory Results 03/14/18 04:30 03/14/18 04:30 03/13/18 03/14/18 03/15/18 05:59 05:59 05:59 Intake Total 853 500 Output Total 1350 750 Balance -497 -250 PT 67.4 SEC (12.0-15.0) H 03/14/18 04:30 INR 8.30 (0.83-1.16) H* 03/14/18 04:30 Physical Exam - Physical Exam General Appearance: WD/WN, alert, no apparent distress, obese EENT: PERRL/EOMI Neck: supple Respiratory: rales, rhonchi, No stridor, No wheezing Cardiac/Chest: regular rate, rhythm, No edema Abdomen: non-tender, soft, No distended Skin: normal color, warm/dry, No cyanosis Lymphatic: no adenopathy Extremities: No pedal edema Neuro/Psych: alert, normal mood/affect, oriented x 3 ICD10 Worksheet Patient Problems: Problems Problem Status Onset Hypoxemia Acute Pneumonia Acute Severe sepsis Acute
--- NOTE | 2018-03-14 17:28 | HOSPPROG ---
Hospitalist Progress Note Assessment/Plan: Subjective Follow-up on respiratory failure. Patient states he is breathing much better today as compared to yesterday. He is visiting his son from [place]. Case was reviewed as well with Dr. Glass during ICU rounds. Objective Vital signs as detailed below Exam General-patient appears comfortable he is awake alert conversant no acute distress Heart-irregular no murmurs appreciated Lungs coarseness appreciated throughout all lung jones a mild associated wheezing as well was noted in the left upper lobe Abdomen-soft nontender nondistended -Nielsen catheter in place Extremities-no significant pitting edema or calf pain with palpation Skin-no concerning skin rashes noted Labs as detailed below Assessment and plan Acute hypoxic respiratory failure-this is secondary to presumed community- acquired pneumonia. I suspect he may have underlying COPD as well. He is on daily Advair and Spiriva inhalers. Continue with these as prescribed he and continue along with the Solu-Medrol. Hopefully he will have an improved response tomorrow we can wean these. Pneumonia-chest CT showing bilateral pneumonia treating for community-acquired pneumonia with ceftriaxone currently. Thus far he seems to be having a good clinical response. Acute kidney injury on top of chronic kidney disease-improved creatinine today at 2.1 from 3.0 yesterday. IV fluids stopped in light of he worsening respiratory status. Continue to trend and recheck tomorrow. Patient is unsure to his baseline creatinine but I am estimating is somewhere between 1.5 in 2.0. Tobacco use-continue nicotine patch Coagulopathy patient was administered 5 mg of vitamin K. His INR did decrease from 12-8. will recheck again tomorrow morning. Metabolic acidosis-suspect secondary to this chronic kidney disease stage 3 Atrial fibrillation-continue anticoagulation with Coumadin although on hold now in light of coagulopathy and continue metoprolol for rate control. Hypertension-appears well controlled patient is on hydrochlorothiazide 25 mg daily lisinopril 20 mg daily and metoprolol 75 mg twice a day. COPD-suspected. Continue with current inhaler regimen. History of renal cell carcinoma-patient is status post right nephrectomy. His urine output looks good. Diabetes mellitus type 2-patient currently on Januvia. Hyperlipidemia-atorvastatin. Gout-allopurinol. DVT prophylaxis-patient is anticoagulated in supratherapeutic currently. Disposition-likely will be stable for discharge home once medically ready. Objective: Vital Signs Temp Pulse Resp BP Pulse Ox 36.5 C 95 12 129/60 H 95 03/14/18 11:26 03/14/18 16:04 03/14/18 16:04 03/14/18 11:26 03/14/18 16:04 Microbiology 03/13/18 18:10 Respiratory Panel (PCR) - Final Nasal, Sinus - Swab No Organism Detected Laboratory Results 03/14/18 04:30 03/14/18 04:30 03/13/18 03/14/18 03/15/18 05:59 05:59 05:59 Intake Total 853 500 Output Total 1350 750 Balance -497 -250 PT 67.4 SEC (12.0-15.0) H 03/14/18 04:30 INR 8.30 (0.83-1.16) H* 03/14/18 04:30 ICD10 Worksheet Patient Problems: Problems Problem Status Onset Hypoxemia Acute Pneumonia Acute Severe sepsis Acute
[2018-03-14] MEDS ORDERED: TEARS/DEXTRAN 70/HYPROMELLOSE 15 ML OPHT.BTL EACHEYE PRN (18:03)
[2018-03-14] MEDS: METOPROLOL TARTRATE 50 MG TAB PO SCH (20:02)
[2018-03-14] MEDS: CITALOPRAM 20 MG TAB PO SCH (20:02)
[2018-03-14] MEDS: GABAPENTIN 300 MG CAP PO SCH (20:03)
[2018-03-14] MEDS: ATORVASTATIN CALCIUM 20 MG TAB PO SCH (20:03)
[2018-03-14] MEDS ORDERED: METOPROLOL TARTRATE 5 MG/5 ML INJ IVP ONE (20:44)
[2018-03-14] MEDS ORDERED: WARFARIN SODIUM 5 MG TAB PO SCH (21:00)
[2018-03-14] MEDS ORDERED: DILTIAZEM 25 MG/5 ML VIAL IVP ONE (23:45)
[2018-03-15] MEDS: HYDROCODONE/APAP 5/325 TAB PO PRN ×4 (03:10→23:54)
[2018-03-15] MEDS: METOPROLOL TARTRATE 5 MG/5 ML INJ IVP SCH (05:00)
[2018-03-15 05:41] LABS: PLATELET COUNT 299 10^3/uL (150-400)
[2018-03-15] MEDS: LEVALBUTEROL 1.25 MG/3 ML DEYVIAL IH SCH ×4 (05:55→20:56)
[2018-03-15 06:32] LABS: INR 5.28 (0.83-1.16); PROTIME(PATIENT) 47.7 SEC (12.0-15.0)
[2018-03-15] MEDS: INSULIN REGULAR HUMAN 100 UNIT/ML UNIT SC SCH ×4 (08:34→20:31)
[2018-03-15] MEDS: guaiFENesin 600 MG TAB.ER PO SCH ×2 (08:34→20:31)
[2018-03-15] MEDS: METOPROLOL TARTRATE 50 MG TAB PO SCH (08:35)
[2018-03-15] MEDS: ALLOPURINOL 300 MG TAB PO SCH (08:37)
[2018-03-15] MEDS: EZETIMIBE 10 MG TAB PO SCH (08:37)
[2018-03-15] MEDS: CHOLECALCIFEROL VIT D3 1,000 UNITS TAB PO SCH (08:38)
[2018-03-15] MEDS: DULoxetine 60 MG CAP PO SCH (08:38)
[2018-03-15] MEDS: NICOTINE 21 MG/24 HR PATCH TD SCH (08:38)
[2018-03-15] MEDS ORDERED: methylPREDNISolone SOD SUCC 125 MG/2 ML VIAL IVP SCH (09:00)
[2018-03-15] MEDS ORDERED: LANSOPRAZOLE SUSP 30MG/10ML UDSYR (Adult) TUBE SCH (09:00)
[2018-03-15] MEDS ORDERED: AMIODARONE HCL 200 MG TAB PO SCH (09:00)
[2018-03-15] MEDS ORDERED: HYDROCHLOROTHIAZIDE 25 MG TAB PO SCH (09:00)
[2018-03-15] MEDS ORDERED: LISINOPRIL 20 MG TAB PO SCH (09:00)
[2018-03-15] MEDS: TIOTROPIUM INHALER 18 MCG/DOSE 5 DOSE/MDI IH SCH (09:39)
[2018-03-15] MEDS: FLUTICASONE/SALMETER 250/50MCG DISKUS IH SCH ×2 (09:40→20:56)
[2018-03-15] MEDS ORDERED: METOPROLOL TARTRATE 100 MG TAB PO SCH (09:45)
[2018-03-15] MEDS ORDERED: METOPROLOL TARTRATE 25 MG TAB PO ONE (10:00)
--- NOTE | 2018-03-15 12:20 | HOSPPROG ---
Hospitalist Progress Note Assessment/Plan: Subjective Follow-up on respiratory failure. Patient states he is breathing better again today as compared to yesterday but still not to his baseline. He did have atrial fibrillation with rapid rate again last evening and did receive IV diltiazem. This case was reviewed with Dr. Glass on rounds today and we did have discussion about using CPAP while sleeping to help mitigate the risk of atrial fibrillation. It sounds like he was using home CPAP regularly at but after losing a significant await the has not been using CPAP therapy in the recent months. The patient's was at the bedside today and I did update her on the overall clinical status as well. Objective Vital signs as detailed below Exam General-patient appears comfortable he is awake alert conversant sitting in chair at the bedside no acute distress Heart-irregular mildly tachycardic with heart rate running in the 110s to 120s no murmurs appreciated Lungs-much improved coarseness as compared to yesterday's exam no significant wheezing appreciated. Respiratory effort is normal. Abdomen-soft nontender nondistended -no Nielsen catheter in place Extremities no significant pitting edema Labs as detailed below Assessment and plan Acute hypoxic respiratory failure-this is secondary to community-acquired pneumonia and I suspect he may have underlying COPD as well. Clinically overall he seems to be improving with current measures in place. I recommend continuation of the current Advair and Spiriva. Solu-Medrol has been decreased to daily at this point time. Possibly we can transition this to prednisone in the coming days. Pneumonia-continue with current ceftriaxone. Azithromycin was held initially out of concern for QT interval prolongation. His initial ECG showed a QT interval measured at 433. Acute kidney injury on top of chronic kidney disease-improved with IV fluids. I am suspecting his baseline creatinine is somewhere between 1.5 and 2.0. However we do not have prior readings as a comparison. Atrial fibrillation with rapid ventricular response-possibly driven by sleep apnea untreated with CPAP therapy as well as underlying lung infection. I have increased metoprolol today 200 mg twice a day. He also received amiodarone this morning at 200 mg orally. For now all hold amiodarone with the increase in metoprolol but we may need to continue based upon his heart rates throughout the day today. Anticoagulation is on hold in light of supra therapeutic INR on admission. Coagulopathy-patient did receive vitamin K 5 mg orally. INR is trending down to 5 today. Clinically without any active bleeding. Will continue to follow. Tobacco use-nicotine patch in place. Metabolic acidosis-suspecting secondary to chronic kidney disease. Hypertension-controlled with the current antihypertensive regimen and place. Continue to monitor closely with the increase in metoprolol. COPD-suspected. Continue with current heel regimen History of renal cell carcinoma-patient is status post right nephrectomy. Diabetes mellitus type 2-continue current Januvia. Hyperlipidemia-continue atorvastatin. Gout-continue allopurinol. DVT prophylaxis no heparin or Lovenox in light of supratherapeutic INR. Patient is chronically anticoagulated. Disposition-anticipating at least 2 or 3 more days here in the hospital. Working to try to wean his oxygen off completely. He will discharge in likely return back to his home in [place]. Objective: Vital Signs Temp Pulse Resp BP Pulse Ox 36.6 C 114 H 20 139/76 H 92 03/15/18 08:00 03/15/18 11:54 03/15/18 11:54 03/15/18 08:00 03/15/18 11:54 Laboratory Results 03/15/18 05:00 03/15/18 05:00 03/14/18 03/15/18 03/16/18 05:59 05:59 05:59 Intake Total 853 1801 Output Total 1350 1680 Balance -497 121 PT 47.7 SEC (12.0-15.0) H 03/15/18 05:00 INR 5.28 (0.83-1.16) H* 03/15/18 05:00 ICD10 Worksheet Patient Problems: Problems Problem Status Onset Hypoxemia Acute Pneumonia Acute Severe sepsis Acute
[2018-03-15] MEDS: POLYETHYLENE GLYCOL 3350 17 GM PKT PO SCH (12:26)
[2018-03-15] MEDS: PSYLLIUM METAMUCIL 1 PKT PO SCH (12:27)
--- NOTE | 2018-03-15 13:00 | PDINTPN ---
Flange Machine Operator Progress Note Assessment/Plan: 68 M visiting from [place] admitted 03/13 with cough, sob and hypoxemia that started prior to arrival. His CXR showed consolidation in the ARACELIS and he was treated for CAP. He was also started on the sepsis protocol but developed increasing respiratory failure and required bipap. In addition, he had atrial fibrillation with RVR and was treated with amiodarone. Because of known COPD, he was given albuterol which was subsequently changed to Xopenex, as well as Spiriva and IV steroids. * CAP- responding well to abx (CTX). Blood cx NTD and urinary legionella/strep Ag pending. CT shows PNA with no evidence of malignancy. Continues to improve * COPD with acute exacerbation- agree with xopenex and controller meds. Reduced IV steroids to daily 03/14; change to prednisone today. * Atrial fibrillation- may be able to reduce back to baseline metoprolol since converted to NSR. Agree with amiodarone. * NESTOR- might help his afib if he used cpap. making brief trip back to [place] and will bring back * Anticoag poisoning- no active bleeding and INR now < 10. I dont feel additional vitamin K or FFP is indicated at this time. Continue to hold warfarin. * OK for SDU 03/15/18 12:59 Subjective: feeling better Objective: Vital Signs Temp Pulse Resp BP Pulse Ox 37.4 C 116 H 21 H 129/78 H 91 L 03/15/18 12:00 03/15/18 12:00 03/15/18 12:00 03/15/18 12:00 03/15/18 12:00 Laboratory Results 03/15/18 05:00 03/15/18 05:00 03/14/18 03/15/18 03/16/18 05:59 05:59 05:59 Intake Total 853 1801 400 Output Total 1350 1680 300 Balance -497 121 100 PT 47.7 SEC (12.0-15.0) H 03/15/18 05:00 INR 5.28 (0.83-1.16) H* 03/15/18 05:00 Physical Exam - Physical Exam General Appearance: WD/WN, alert, no apparent distress EENT: PERRL/EOMI Neck: supple Respiratory: lungs clear, normal breath sounds, No respiratory distress, No accessory muscle use Cardiac/Chest: regular rate, rhythm, No edema Abdomen: non-tender, soft, No distended Skin: normal color, warm/dry, No cyanosis Lymphatic: no adenopathy Extremities: No pedal edema Neuro/Psych: alert, normal mood/affect, oriented x 3 ICD10 Worksheet Patient Problems: Problems Problem Status Onset Hypoxemia Acute Pneumonia Acute Severe sepsis Acute
[2018-03-15] MEDS: POTASSIUM CL 20 MEQ/15 ML UDCUP PO SCH (13:33)
--- NOTE | 2018-03-15 16:51 | SOAPPROG ---
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 Cr up to 3 on presentation --> 1.8 on 03/15, lytes ok, volume status ok. He was given 3L NS in ER and had respiratory decompensation, got Lasix. He likely has ATN in setting of N/V, hypotension, tachycardia. Could have pulmonary-renal syndrome but renal function seems to be responding quickly, nearing baseline so underlying GN unlikely - No need for HD. - Based on CT results on 03/14, will not give another dose of Lasix, but could be considered if needed. - Avoid hypotension and nephrotoxins. - Will continue to monitor. - No need for additional IVFs at this time. - Holding RAAS blockade and HCTZ. HTN: BP low on presentation, BP meds on hold, currently BP stable. Hyponatremia: mild, Na 130, will continue to monitor. Suspect some element of cardiorenal in setting of A. fib Metabolic acidosis: in setting of SUJATA, improved from CO2 15 --> 22 --CTM A fib: defer to primary Subjective: Back in A. fib with RVR, which, per nursing improves with Bipap but patient can' t tolerate it. Patient feels much better than yesterday. Denies shortness of breath on NRB mask. Making urine and denies difficulty emptying his bladder. Objective: Vital Signs Temp Pulse Resp BP Pulse Ox 37.4 C 139 H 27 H 145/71 H 89 L 03/15/18 16:00 03/15/18 16:00 03/15/18 16:00 03/15/18 16:00 03/15/18 16:00 Laboratory Results 03/15/18 05:00 03/15/18 05:00 03/14/18 03/15/18 03/16/18 05:59 05:59 05:59 Intake Total 853 1801 850 Output Total 1350 1680 550 Balance -497 121 300 PT 47.7 SEC (12.0-15.0) H 03/15/18 05:00 INR 5.28 (0.83-1.16) H* 03/15/18 05:00 General: alert and oriented, no acute distress, lying flat in bed wearing NRB Eyes: EOMI, PERRL OP: Clear CV: irregularly irregular and tachycardic, trace bilateral LE edema Resp: on NRB, lungs clear Abd: Soft, NT/ND Ext: trace edema Neuro: CN II-XII grossly intact, no asterixis Psych: cooperative, answers questions appropriately ICD10 Worksheet Patient Problems: Problems Problem Status Onset Hypoxemia Acute Pneumonia Acute Severe sepsis Acute
[2018-03-15] MEDS: methylPREDNISolone SOD SUCC 125 MG/2 ML VIAL IVP SCH ×2 (17:20→23:54)
[2018-03-15] MEDS ORDERED: AMIODARONE HCL 200 MG TAB ONE (17:56)
[2018-03-15] MEDS: AMIODARONE HCL 200 MG TAB PO SCH (17:57)
[2018-03-15] MEDS: LORazepam 2 MG/ML INJ IVP PRN (18:02)
[2018-03-15] MEDS: CITALOPRAM 20 MG TAB PO SCH (20:30)
[2018-03-15] MEDS: ATORVASTATIN CALCIUM 20 MG TAB PO SCH (20:30)
[2018-03-15] MEDS: GABAPENTIN 300 MG CAP PO SCH (20:30)
[2018-03-15] MEDS: METOPROLOL TARTRATE 100 MG TAB PO SCH (20:30)
[2018-03-15] MEDS: SENNOSIDES 1 TAB PO SCH (20:31)
[2018-03-16] MEDS: HYDROCODONE/APAP 5/325 TAB PO PRN (04:13)
[2018-03-16] MEDS: LORazepam 2 MG/ML INJ IVP PRN (04:13)
[2018-03-16 05:31] LABS: PLATELET COUNT 302 10^3/uL (150-400)
[2018-03-16] MEDS: methylPREDNISolone SOD SUCC 125 MG/2 ML VIAL IVP SCH ×3 (07:15→17:15)
[2018-03-16] MEDS: LEVALBUTEROL 1.25 MG/3 ML DEYVIAL IH SCH ×4 (07:36→20:35)
[2018-03-16 07:39] LABS: INR 7.19 (0.83-1.16); PROTIME(PATIENT) 60.4 SEC (12.0-15.0)
[2018-03-16] MEDS ORDERED: FUROSEMIDE 40 MG/4 ML VIAL IVP ONE ×2 (07:56→13:16)
[2018-03-16] MEDS ORDERED: FUROSEMIDE 20 MG/2 ML VIAL ONE (08:38)
[2018-03-16] MEDS: NICOTINE 21 MG/24 HR PATCH TD SCH (08:55)
[2018-03-16] MEDS ORDERED: PANTOPRAZOLE SODIUM 40 MG TAB PO SCH (09:00)
--- NOTE | 2018-03-16 09:22 | PDINTPN ---
Architectural Engineer Progress Note Assessment/Plan: 68 M visiting from [place] admitted 03/13 with cough, sob and hypoxemia that started prior to arrival. His CXR showed consolidation in the ARACELIS and he was treated for CAP. He was also started on the sepsis protocol but developed increasing respiratory failure and required bipap. In addition, he had atrial fibrillation with RVR and was treated with amiodarone. Because of known COPD, he was given albuterol which was subsequently changed to Xopenex, as well as Spiriva and IV steroids. * CAP- WBC unchanged today but afebrile. Urinary antigens still pending; hemodynamically stable * Acute respiratory failure with hypoxemia requiring mechanical ventilation ( noninvasive)- his CXR looks worse today and c/w pulmonary edema. A BNP is pending, but he was given 60 mg IV lasix this am. Morales replaced (dc'd 03/15). * COPD with acute exacerbation- agree with xopenex and controller meds. Reduced IV steroids to daily 03/14; but increased today given tenuous respiratory status. * Atrial fibrillation- not well controlled on metoprolol and 200 amiodarone. Cards consulted. Would start amio drip now * NESTOR- might help his afib if he used cpap. making brief trip back to [place] and will bring back * Anticoag poisoning- no active bleeding and INR now < 10. I dont feel additional vitamin K or FFP is indicated at this time. Continue to hold warfarin. * Dispo: needs ICU status. Subjective: feels better and reports less sob, but required bipap yesterday and all night Objective: Vital Signs Temp Pulse Resp BP Pulse Ox 37.2 C 138 H 28 H 118/70 87 L 03/16/18 02:00 03/16/18 07:43 03/16/18 07:43 03/16/18 06:00 03/16/18 07:43 Laboratory Results 03/16/18 05:25 03/16/18 05:25 03/15/18 03/16/18 03/17/18 05:59 05:59 05:59 Intake Total 1801 2300 Output Total 1680 1250 Balance 121 1050 PT 60.4 SEC (12.0-15.0) H 03/16/18 05:25 INR 7.19 (0.83-1.16) H* 03/16/18 05:25 Physical Exam - Physical Exam General Appearance: alert, mild distress, obese EENT: PERRL/EOMI Neck: supple Respiratory: accessory muscle use, crackles, wheezing, No respiratory distress, No rhonchi Cardiac/Chest: normal peripheral pulses, irregularly irregular Abdomen: non-tender, soft, No distended Skin: normal color, warm/dry, No cyanosis Lymphatic: no adenopathy Extremities: No pedal edema Neuro/Psych: alert, normal mood/affect, oriented x 3 ICD10 Worksheet Patient Problems: Problems Problem Status Onset Hypoxemia Acute Pneumonia Acute Severe sepsis Acute
[2018-03-16] MEDS ORDERED: AMIODARONE HCL 100 ML IV ONE (09:23)
[2018-03-16] MEDS: INSULIN REGULAR HUMAN 100 UNIT/ML UNIT SC SCH ×4 (09:49→22:50)
[2018-03-16] MEDS: AMIODARONE HCL 100 ML IV ONE ×2 (10:00→17:12)
[2018-03-16] MEDS ORDERED: AMIODARONE HCL 200 ML IV ONE (10:00)
[2018-03-16] MEDS: TIOTROPIUM INHALER 18 MCG/DOSE 5 DOSE/MDI IH SCH (10:25)
[2018-03-16] MEDS: FLUTICASONE/SALMETER 250/50MCG DISKUS IH SCH ×2 (10:26→20:40)
[2018-03-16] MEDS ORDERED: ALTEPLASE 2 MG VIAL IVP PRN (10:37)
[2018-03-16] MEDS: ALLOPURINOL 300 MG TAB PO SCH (10:40)
[2018-03-16] MEDS: CHOLECALCIFEROL VIT D3 1,000 UNITS TAB PO SCH (10:40)
[2018-03-16] MEDS: METOPROLOL TARTRATE 100 MG TAB PO SCH (10:41)
[2018-03-16] MEDS: guaiFENesin 600 MG TAB.ER PO SCH (10:41)
[2018-03-16] MEDS: DULoxetine 60 MG CAP PO SCH (10:41)
[2018-03-16] MEDS: EZETIMIBE 10 MG TAB PO SCH (10:41)
[2018-03-16] MEDS: POLYETHYLENE GLYCOL 3350 17 GM PKT PO SCH (10:50)
[2018-03-16] MEDS: PSYLLIUM METAMUCIL 1 PKT PO SCH (10:55)
[2018-03-16] MEDS: POTASSIUM CL 20 MEQ/15 ML UDCUP PO SCH (10:55)
--- NOTE | 2018-03-16 11:35 | GCON ---
[f rep st] CONSULTATION HISTORY OF PRESENT ILLNESS: This 68-year-old male is visiting from [place] , who then drove from [place]. As soon as he came to [place], he felt tired and went to bed. He then developed shortness of breath, cough, and was brought to the emergency room. He was found to be hypotensive, tachycardiac. Chest x-ray as well as CT scan were done. A dense left upper lobe infiltrate was noted. His hypoxia worsened over time and, over a period of time, he has been placed on BiPAP. He has been in atrial fibrillation with rapid ventricular response. 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 He carries a diagnosis of focal segmental glomerulosclerosis. His creatinine in the past was 3 at baseline. With IV fluids, it came down to 2.5. Overnight, his respiratory distress got worse and he was on BiPAP overnight, and is on nasal mask at current point in time. His heart rate is in the 130s and 40s. He currently seems to be mildly delirious at this point in time, though not combative. PAST MEDICAL HISTORY: Significant for diabetes, peripheral vascular disease, coronary artery disease, AFib on anticoagulation, COPD, as well as sleep apnea. PAST SURGICAL HISTORY: Coronary angiography, knee arthroscopy, right nephroureteral ureterectomy, tonsillectomy. HOME MEDICATIONS: Allopurinol, [place], Coumadin, Spiriva, Nicoderm, Levitra, Januvia, Cymbalta, Requip, Prevacid, Neurontin, Celexa, hydrochlorothiazide, Lipitor, daily, Daliresp, Lopressor 75 b.i.d., Proventil, Advair, lisinopril, and Zetia. CURRENT MEDICATIONS: He is currently on antibiotics, in addition to his home medications. SOCIAL HISTORY: Active smoker up until September of this year, of 43 pack years of smoking. Does not drink heavily. FAMILY HISTORY: Heart disease. REVIEW OF SYSTEMS: Other than the above, negative. PHYSICAL EXAMINATION: VITAL SIGNS: Blood pressure 118/70, pulse of 138, respiratory rate 28. GENERAL: Middle-aged male in distress. Answering questions, but not appears mildly delirious. HEENT: Pupils equal reacting to light. Anicteric sclerae. Oral mucosa moist. NECK: No lymphadenopathy. No JVD. CARDIAC: S1, S2. Irregular. No S3. No murmurs. CHEST: Poor air entry. Coarse rales all over. Coarse crackles all over. ABDOMEN: Soft, nontender. No guarding, rigidity. Bowel sounds present. EXTREMITIES: No edema noted. NEUROLOGIC: Grossly intact. LABORATORY/DIAGNOSTIC DATA: Evaluated. White count 12.5, hemoglobin 11.7. Creatinine is 2.6, BUN of 86. Last echocardiogram done was on March 13, which showed normal EF without any biatrial enlargement. IMPRESSION/PLAN: This is a 68-year-old male, with known chronic obstructive pulmonary disease, hypertension, diabetes, atrial fibrillation, who comes in with chronic obstructive pulmonary disease exacerbation and pneumonia, with significant degree of hypoxemia requiring increasing ventilatory support, who has atrial fibrillation with rapid ventricular response. His atrial fibrillation with rapid ventricular response is related to his hypoxemia, and at current point in time, while he is undergoing treatment of the same, I would recommend that we pursue a rate-control approach. Currently, he has been started on IV amiodarone and he is on metoprolol p.o. We will continue the same. If rate control is not achieved, Cardizem drip will be started. At current point in time, cardioversion will not be a good option, considering that he will not remain in normal rhythm because of the sympathetic surge he is experiencing. Because of this sympathetic activity, digoxin will not be of help at current point in time (it is not a good option considering his creatinine levels are fluctuating). BUN and creatinine appear to be mildly dehydrated. Considering normal EF, he may be able to tolerate increased fluid, and hence, I would recommend intravenous fluids (especially since he may not be able to tolerate p.o. intake considering current hypoxemia. ). Further, dehydration may be contributing to his tachycardia Pneumonia: As per hospitalist and manager trainee. Thank you for letting me participate in the patient's care. We will continue to follow the patient with you. /[id number]/MODL MTDD
[2018-03-16] MEDS: AMIODARONE HCL 200 MG TAB PO SCH (13:09)
[2018-03-16] MEDS ORDERED: PROPOFOL/EMULSION 1,000 MG/100 ML BOTTLE IV ONE (14:12)
[2018-03-16] MEDS ORDERED: FUROSEMIDE 100 MG/10 ML VIAL IVP ONE (14:37)
[2018-03-16] MEDS ORDERED: LIDOCAINE 2% JELLY 5 ML TUBE ONE (14:42)
[2018-03-16] MEDS ORDERED: LIDOCAINE 1% 5 ML SDV ONE (14:43)
[2018-03-16] MEDS ORDERED: FUROSEMIDE IV ONE (15:00)
[2018-03-16] MEDS ORDERED: D5W IV ONE (15:00)
[2018-03-16] MEDS ORDERED: LIDOCAINE 1% 300 MG/30 ML SDV IF ONE (15:15)
[2018-03-16] MEDS ORDERED: ETOMIDATE 40 MG/20 ML INJ IV ONE ×2 (15:15→15:45)
[2018-03-16] MEDS ORDERED: fentaNYL 100 MCG/2 ML INJ IV ONE ×2 (15:15→15:45)
[2018-03-16] MEDS ORDERED: MIDAZOLAM 2 MG/2 ML VIAL IVP ONE ×3 (15:15→15:45)
--- NOTE | 2018-03-16 15:31 | GPN ---
[f rep st] PROCEDURE NOTE DATE OF PROCEDURE: 03/16/2018 PROCEDURE: Intubation, as well as bronchoscopy. CONSENT: Consent was waived due to the emergent nature of the procedure. INDICATIONS: Hypoxic respiratory failure and excess work of breathing, despite diuretics, Vapotherm and noninvasive ventilation. PROCEDURE IN DETAIL: First, the patient was intubated with an 8.0 endotracheal tube using a MAC 4 Gl ideScope with direct visualization. There was significant blackened caked secretions on the edges of his mouth with dry mucous covering the vocal cords. The vocal cords move normally. The endotrachea l tube was placed easily on the first attempt without difficulty. There was appropriate color change and capnography tube condensation and equal breath sounds. His oxygen saturation prior to intubatio n was 87% on 100% FiO2 on BiPAP. We were unable to achieve 100% preoxygenation, despite aggressive b agging. The oxygen saturation remained about 83% to 88%, even after intubation. Subsequently, a bron choscopy was performed through the recently placed endotracheal tube. Specimens were collected from this. The endotracheal tube itself had some blood clot within the tube, but was easily suctioned out after a couple of passes. 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 There were small amounts of clot and mucus, more so in the right lower lobe than the left lung, but there were secretions in both sides. These were suctioned to clear with good visualization of th e subsegmental airways. There were no endobronchial masses. There was significant erythema througho ut. Overall, the patient tolerated the bronchoscopy without difficulty, as well as the endotracheal tube. Postprocedure chest x-ray shows diffuse bilateral infiltrates with the endotracheal tube poten tially a bit high, so we will advance that, but good aeration of lungs and no pneumothorax. /[id number]/MODL
[2018-03-16] MEDS ORDERED: LIDOCAINE 1% 5 ML SDV IF ONE (15:45)
[2018-03-16] MEDS: NOREPINEPHRINE BITARTRATE 4 MG in D5W 500 ML IV SCH (15:52)
[2018-03-16] MEDS: VECURONIUM BROMIDE 50 MG in NS 50 ML IV SCH ×2 (15:57→22:35)
[2018-03-16] MEDS ORDERED: fentaNYL/NACL 100 ML IV SCH (16:00)
[2018-03-16] MEDS ORDERED: VASOPRESSIN/DEXTROSE 250 ML IV SCH (16:00)
[2018-03-16] MEDS ORDERED: fentaNYL 100 MCG/2 ML INJ IVP PRN (16:01)
[2018-03-16] MEDS ORDERED: NARCOTIC DRIP BAG-TOTAL ALL TYPES IV PRN (16:02)
[2018-03-16] MEDS ORDERED: AMIODARONE HCL 540 MG in D5W 300 ML IV ONE (16:30)
--- NOTE | 2018-03-16 17:28 | HOSPPROG ---
Hospitalist Progress Note Assessment/Plan: Subjective Follow-up on respiratory failure and tachycardia. I reviewed the patient's case this morning with Dr. Chamorro with cardiology due to the persistent AFib with RVR. Amiodarone drip was resumed. Unfortunately the patient's respiratory status slowly declined throughout the day and was ultimately intubated. The patient's son Syed was updated on the clinical status and questions were answered. Objective Vital signs as detailed below Exam General-patient is appears uncomfortable and somewhat more confused today as compared to yesterday Heart-tachycardic irregular no murmurs appreciated Lungs-mild wheezing noted but less as compared to yesterday evening disease am where he had significantly more wheezing than yesterday morning his respiratory effort is increased today as compared to yesterday's exam. Abdomen-soft nontender nondistended. -Nielsen catheter in place Extremities-no significant pitting edema Labs as detailed below Assessment and plan Acute hypoxic respiratory failure-I suspect the initial insult was secondary to community-acquired pneumonia on top of underlying COPD. More acutely this seems to be a volume issue. He was given a total of 120 mg of IV Lasix today with a lower than expected urine output. Patient was ultimately intubated secondary to respiratory distress. Continue current Solu-Medrol and inhalers. Pneumonia-patient has been treated for community-acquired pneumonia. Azithromycin was held initially and of concern of QT interval prolongation. His initial ECG shows QT interval of 433. Acute kidney injury on top of chronic kidney disease-this initially improved with IV fluids although did increase this morning to 2.6. This may be secondary to low cardiac output secondary to AFib with RVR. I appreciate Nephrology assistance on the case as well. Atrial fibrillation with rapid ventricular response-appreciate Dr. Chamorro's assistance on the case. Continuing with amiodarone drip. Anticoagulation held in light of supratherapeutic INR. Coagulopathy-patient did receive 5 mg of vitamin K initially. INR was trending down but is up a little bit today from 5-7. Likely driven by current amiodarone and antibiotics potentially as well. He is not currently bleeding so will continue to follow. Tobacco use-nicotine patch in place. Hypertension-lisinopril was held this morning with rise in creatinine. He that she become hypotensive after intubation and is on Levophed. Says history of renal cell carcinoma-patient is status post right nephrectomy. Diabetes mellitus type 2-will treat with sliding scale insulin at this time-may need to add long-acting insulin. Hyperlipidemia-continue atorvastatin. Gout-continue allopurinol. DVT prophylaxis-no heparin or Lovenox in light of supratherapeutic INR. Patient is chronically anticoagulated with Coumadin. Disposition-guarded prognosis with significant decline over the past 24 hr. Objective: Vital Signs Temp Pulse Resp BP Pulse Ox 37.2 C 147 H 18 130/100 H 83 L 03/16/18 02:00 03/16/18 17:00 03/16/18 17:00 03/16/18 17:00 03/16/18 17:00 Laboratory Results 03/16/18 05:25 03/16/18 05:25 03/15/18 03/16/18 03/17/18 05:59 05:59 05:59 Intake Total 1801 2300 Output Total 1680 1250 250 Balance 121 1050 -250 PT 60.4 SEC (12.0-15.0) H 03/16/18 05:25 INR 7.19 (0.83-1.16) H* 03/16/18 05:25 ICD10 Worksheet Patient Problems: Problems Problem Status Onset Hypoxemia Acute Pneumonia Acute Severe sepsis Acute
--- NOTE | 2018-03-16 17:33 | SOAPPROG ---
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 Cr up to 3 on presentation --> 1.8 on 03/15 --> 2.6 on . He was given 3L NS in ER and had respiratory decompensation, got Lasix. He likely has ATN in setting of N/V, hypotension, tachycardia that was improving. Worsening of Cr from 03/15 to 03/16 likely related to cardiorenal syndrome, as patient has been having persistent A fib with RVR vs obstruction. It is possible that patient has renal involvement from his Legionella (AIN or tubular injury) though trend more consistent with hemodynamic insult. - Continue to monitor for HD needs - Ok with trial of 200mg IV lasix to see if volume off helps respiratory status , though with A. fib with RVR and hypotension, likely will not respond. Not convinced volume overload is playing a large role here - maintain MAP>65 - Will continue to monitor. - Holding RAAS blockade and HCTZ. HTN: BP low on presentation, BP meds on hold, currently BP stable. Hyponatremia: mild, Na 130. Possibly 2/2 Legionella Metabolic acidosis: in setting of SUJATA, CO2 15 --> 22 --> 18 --CTM A fib: defer to primary Hypotension: likely in part 2/2 intubation drugs and sedation, but A Fib with RVR, Amio drip, and sepsis could be playing a role --Consider Nicom --If BP not fluid responsive, ok with 200mg IV lasix to try to help oxygenate patient Hypoxic respiratory failure: --2/2 Legionella pneumonia +/- pulmonary edema likely related to A fib with RVR --Intubated on 03/16, difficult to oxygenate --See above re: lasix Legionella pneumonia: per primary Discussed with Dr. Quan Escudero MD [facility] I am hydroelectric station chief overnight. Please feel free to call with questions/concerns ) Subjective: Cr up to 2.6 from 1.8 yesterday. Worsening respiratory status prompting transfer to ICU and intubation. Difficult to oxygenate on vent and BP now low. Urine Legionella antigen came back positive. Objective: Vital Signs Temp Pulse Resp BP Pulse Ox 37.2 C 147 H 18 130/100 H 83 L 03/16/18 02:00 03/16/18 17:00 03/16/18 17:00 03/16/18 17:00 03/16/18 17:00 Laboratory Results 03/16/18 05:25 03/16/18 05:25 03/15/18 03/16/18 03/17/18 05:59 05:59 05:59 Intake Total 1801 2300 Output Total 1680 1250 250 Balance 121 1050 -250 PT 60.4 SEC (12.0-15.0) H 03/16/18 05:25 INR 7.19 (0.83-1.16) H* 03/16/18 05:25 General: intubated, ill-appearing Eyes: EOMI, PERRL OP: ET tube in place CV: irregularly irregular and tachycardic, no bilateral LE edema Resp: Intubated on vent, coarse breath sounds bilaterally Abd: Soft, NT/ND Ext: no edema Neuro: intubated and sedated Psych: sedated ICD10 Worksheet Patient Problems: Problems Problem Status Onset Hypoxemia Acute Pneumonia Acute Severe sepsis Acute
[2018-03-16] MEDS: PROPOFOL/EMULSION 100 ML IV SCH (18:33)
[2018-03-16] MEDS: SODIUM BICARBONATE 150 MEQ in D5W 1,000 ML IV SCH (22:36)
[2018-03-16] MEDS ORDERED: GABAPENTIN 250 MG/5 ML 30 ML BOTTLE PO SCH (23:30)
[2018-03-16] MEDS: ATORVASTATIN CALCIUM 20 MG TAB PO SCH (23:59)
[2018-03-17] MEDS: CITALOPRAM 20 MG TAB PO SCH
[2018-03-17] MEDS: GABAPENTIN 300 MG CAP PO SCH
[2018-03-17] MEDS: PROPOFOL/EMULSION 100 ML IV SCH ×3 (00:06→20:53)
[2018-03-17] MEDS: methylPREDNISolone SOD SUCC 125 MG/2 ML VIAL IVP SCH ×5 (00:06→23:35)
[2018-03-17] MEDS: METOPROLOL TARTRATE 100 MG TAB PO SCH (01:12)
[2018-03-17] MEDS: SENNOSIDES 1 TAB PO SCH (01:13)
[2018-03-17] MEDS: VASOPRESSIN 25 UNIT in NS 250 ML IV SCH ×3 (03:49→20:44)
[2018-03-17] MEDS: LEVALBUTEROL 1.25 MG/3 ML DEYVIAL IH SCH (04:09)
[2018-03-17] MEDS: NOREPINEPHRINE BITARTRATE 4 MG in D5W 500 ML IV SCH ×2 (04:40→20:44)
[2018-03-17] MEDS ORDERED: ACETAMINOPHEN 650 MG/20.3 ML UDCUP PO PRN (05:30)
[2018-03-17 06:05] LABS: PLATELET COUNT 323 10^3/uL (150-400)
[2018-03-17 06:59] LABS: INR 9.53 (0.83-1.16); PROTIME(PATIENT) 74.9 SEC (12.0-15.0)
[2018-03-17] MEDS ORDERED: INSULIN REGULAR HUMAN 100 UNIT/ML UNIT IVP ONE (08:17)
[2018-03-17] MEDS ORDERED: D50W 25 GM/50 ML SYR IVP PRN (08:19)
[2018-03-17] MEDS ORDERED: PHYTONADIONE 10 MG in NS 50 ML SC ONE (08:40)
[2018-03-17] MEDS ORDERED: PETROLAT,WHT/MIN OIL/SOD CHL 3.5 GM OPHT.OINT EACHEYE PRN (08:41)
[2018-03-17] MEDS ORDERED: LIDOCAINE 1% 300 MG/30 ML SDV ONE (08:42)
--- NOTE | 2018-03-17 08:53 | CPEKG ---
Heart Rate: 161 RR Interval: 373 QRSD Interval: 100 QT Interval: 292 QTC Interval: 478 QRS [place]: 19 T Wave [place]: 99 EKG Severity - ABNORMAL ECG - EKG Impression: ATRIAL FIBRILLATION WITH RAPID V-RATE EKG Impression: LOW VOLTAGE IN FRONTAL LEADS EKG Impression: MINIMAL ST DEPRESSION, INFERIOR LEADS EKG Impression: NONSPECIFIC T ABNORMALITIES, LATERAL LEADS Electronically Signed By: Jake Schuster 20-Mar-2018 22:04:21
[2018-03-17] MEDS ORDERED: ACETAMINOPHEN 650 MG SUPP PR PRN (08:56)
[2018-03-17] MEDS ORDERED: PANTOPRAZOLE SODIUM 40 MG in NS 100 ML IV SCH (09:00)
[2018-03-17] MEDS ORDERED: PANTOPRAZOLE SODIUM 40 MG VIAL IVP SCH (09:00)
[2018-03-17] MEDS: VECURONIUM BROMIDE 50 MG in NS 50 ML IV SCH ×2 (09:04→18:27)
[2018-03-17] MEDS ORDERED: DILTIAZEM 125 MG in D5W 125 ML IV SCH (09:45)
--- NOTE | 2018-03-17 09:47 | PDINTPN ---
Mortgage Branch Manager Progress Note Assessment/Plan: Assessment: 68 M visiting from [place] admitted 03/13 with cough, sob and hypoxemia that started prior to arrival. His CXR showed consolidation in the ARACELIS and he was treated for CAP. He was also started on the sepsis protocol but developed increasing respiratory failure and required bipap. In addition, he had atrial fibrillation with RVR and was treated with amiodarone. Because of known COPD, he was given albuterol which was subsequently changed to Xopenex, as well as Spiriva and IV steroids. * CAP- WBC unchanged today but afebrile. Urinary antigens still pending; hemodynamically stable * Acute respiratory failure with hypoxemia requiring mechanical ventilation ( noninvasive)- his CXR looks worse today and c/w pulmonary edema. A BNP is pending, but he was given 60 mg IV lasix this am. Morales replaced (dc'd 03/15). * COPD with acute exacerbation- agree with xopenex and controller meds. Reduced IV steroids to daily 03/14; but increased today given tenuous respiratory status. * Atrial fibrillation- not well controlled on metoprolol and 200 amiodarone. Cards consulted. Would start amio drip now * NESTOR- might help his afib if he used cpap. making brief trip back to [place] and will bring back * Anticoag poisoning- no active bleeding and INR now < 10. I dont feel additional vitamin K or FFP is indicated at this time. Continue to hold warfarin. * Dispo: needs ICU status. Plan: 03/17/18 09:46 Objective: Vital Signs Temp Pulse Resp BP Pulse Ox 40.4 C H 160 H 30 H 118/70 90 L 03/17/18 07:00 03/17/18 08:23 03/17/18 08:23 03/17/18 07:00 03/17/18 08:23 Microbiology 03/16/18 16:00 Gram Stain - Final Lung Left Lower Lobe - Bronchial Washings Laboratory Results 03/17/18 05:25 03/17/18 05:25 03/16/18 03/17/18 03/18/18 05:59 05:59 05:59 Intake Total 2300 2059 Output Total 1250 975 600 Balance 1050 1084 -600 PT 74.9 SEC (12.0-15.0) H 03/17/18 05:25 INR 9.53 (0.83-1.16) H* 03/17/18 05:25 ICD10 Worksheet Patient Problems: Problems Problem Status Onset Hypoxemia Acute Pneumonia Acute Severe sepsis Acute
--- NOTE | 2018-03-17 09:52 | PDINTPN ---
Wrapper Leaf Inspector Progress Note Assessment/Plan: Assessment: 68 M visiting from [place] admitted 03/13 with cough, sob and hypoxemia that started prior to arrival. His CXR showed consolidation in the ARACELIS and he was treated for CAP. He was also started on the sepsis protocol but developed increasing respiratory failure and required bipap. In addition, he had atrial fibrillation with RVR and was treated with amiodarone. Because of known COPD, he was given albuterol which was subsequently changed to Xopenex, as well as Spiriva and IV steroids. * CAP- WBC up today, fever to 40C. Urinary antigen positive for legionella. On CTX (started 03/13)/Levo (started 03/16) * Acute respiratory failure with hypoxemia requiring intubation, mechanical ventilation, paralysis * Sepsis: On NE @4-5, LINE PERSON @ .04., achieving target BP. * Renal: Anuric, Cr climbing. Refractory respiratory+metabolic acidosis. On Bicarb gtt since last night. * COPD with acute exacerbation- agree with xopenex and controller meds. Reduced IV steroids to daily 03/14; but increased today given tenuous respiratory status. * Atrial fibrillation- not well controlled on amiodarone gtt. Not getting metoprolol since intubated. Cards consulted. * NESTOR- might help his afib if he used cpap. making brief trip back to [place] and will bring back * Anticoag- no active bleeding and INR initially fell, now up to 9. No signs of active bleeding. * Elevated LFTs: Likely due to sepsis, legionella, ? passive congestion. Signs of reduced synthetic function with elevated INR. Plan: Start cardizem. Vit C per protocol. FFP, the dialysis catheter placement for CVVHD. D/W son. 65 minutes cc time managing hypoxemia, hypotension, acidosis. 03/17/18 15:54 Subjective: Intubated, sedated Objective: Vital Signs Temp Pulse Resp BP Pulse Ox 40.4 C H 160 H 30 H 118/70 90 L 03/17/18 07:00 03/17/18 08:23 03/17/18 08:23 03/17/18 07:00 03/17/18 08:23 Microbiology 03/16/18 16:00 Gram Stain - Final Lung Left Lower Lobe - Bronchial Washings Laboratory Results 03/17/18 05:25 03/17/18 05:25 07/0803/17/18 03/18/18 05:59 05:59 05:59 Intake Total 2300 2059 Output Total 1250 975 600 Balance 1050 1084 -600 PT 74.9 SEC (12.0-15.0) H 03/17/18 05:25 INR 9.53 (0.83-1.16) H* 03/17/18 05:25 CXR: Persistent extensive bilateral interstitial infiltrates. Images reviewed by me. Laboratory Tests 03/14/18 17:20 Urine Legionella Ag Positive H Laboratory Tests 03/17/18 03/17/18 05:25 05:30 pCO2 56 H pO2 70 Total CO2 21 L ABG pH 7.17 L* ABG HCO3 19 L O2 Concentration % 100 Respiration Rate 30 Assist Control YES Tidal Volume 530 End Tidal CO2 34 PEEP 14 Anion Gap 16 AST 574 H ALT 164 H NT-Pro-B Natriuret Pep 41691 H Physical Exam - Physical Exam General Appearance: unresponsive, No alert EENT: normal ENT inspection Neck: normal inspection Respiratory: lungs clear, normal breath sounds Cardiac/Chest: irregularly irregular (tachycardia) Abdomen: normal bowel sounds, non-tender Skin: normal color, warm/dry Extremities: normal inspection (livido pattern left leg below knee) Neuro/Psych: No alert, No oriented x 3 ICD10 Worksheet Patient Problems: Problems Problem Status Onset Hypoxemia Acute Pneumonia Acute Severe sepsis Acute
[2018-03-17] MEDS: THIAMINE HCL 200 MG in NS 100 ML IV SCH ×2 (10:18→23:35)
[2018-03-17] MEDS: ASCORBIC ACID 1,500 MG in D5W 100 ML IV SCH ×3 (10:43→23:35)
[2018-03-17] MEDS: SODIUM BICARBONATE 150 MEQ in D5W 1,000 ML IV SCH (10:48)
[2018-03-17] MEDS ORDERED: D50W 25 GM/50 ML SYR IVP ONE (11:00)
[2018-03-17] MEDS: ALLOPURINOL 300 MG TAB PO SCH (11:00)
[2018-03-17] MEDS: CHOLECALCIFEROL VIT D3 1,000 UNITS TAB PO SCH (11:03)
[2018-03-17] MEDS: POTASSIUM CL 20 MEQ/15 ML UDCUP PO SCH (11:12)
[2018-03-17] MEDS: POLYETHYLENE GLYCOL 3350 17 GM PKT PO SCH (11:12)
[2018-03-17] MEDS: NICOTINE 21 MG/24 HR PATCH TD SCH (11:13)
[2018-03-17] MEDS: LACTULOSE 20 GM/30 ML UDCUP TUBE SCH ×2 (11:15→21:29)
--- NOTE | 2018-03-17 11:37 | PDCARPN ---
Cardiology Progress Note Assessment/Plan: Assessment: 1. Afib with RVR 2. Sepsis 3. Pneumonia with ARACELIS infiltrate 4. Acute respiratory distress 5. Acute renal failure Plan: -continue amiodarone gtt at 0.5 mg/min -agree with diltizem gtt with range of 5-15 mg/hr -would not recommend cardioversion at this time -will continue to follow -15 minutes spent coordinating care in this critically ill patient 03/17/18 11:38 Subjective: Mr. 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 He was found to have Left upper lobe infiltrate, hypotensive and tachycardic with afib with RVR at 170 bpm. He was seen yesterday by my partner, Dr. Chamorro who started Amiodarone gtt. Over the last 24 hours, his clinical condition has deteriorated with progression of acute respiratory failure, requiring intubation coupled with development of acute on chronic renal failure with marked increase in Cr to 5.3. He remains in Afib with RVR despite amiodarone gtt with rates in the 170' s. Diltizem gtt added approximately 30 minutes ago wiht improvement in rates to the 130-150 range. Reviewed/Discussed With: multidisciplinary team Objective: Vital Signs (8 Hrs) Temp Pulse Resp BP Pulse Ox 03/17/18 10:19 145 H 03/17/18 09:00 40.2 C H 149 H 30 H 89/46 L 91 L 03/17/18 08:23 160 H 30 H 90 L 03/17/18 07:00 40.4 C H 156 H 30 H 118/70 89 L 03/17/18 06:00 39.5 C H 158 H 30 H 115/68 88 L 03/17/18 05:00 39.4 C H 159 H 30 H 122/61 H 90 L 03/17/18 04:35 157 H 132/108 H 03/17/18 04:20 134 H 30 H 03/17/18 04:05 148 H 30 H 94/49 L 88 L 03/17/18 04:00 156 H 30 H 96/62 L 90 L Intake/Output (24 Hrs) 03/16/18 03/17/18 03/18/18 05:59 05:59 05:59 Intake Total 2300 2059 Output Total 1250 975 600 Balance 1050 1084 -600 Intake: Oral (ml) 2300 0 IV Intake (ml) 1500 IV Infused (ml) 559 Amiodarone HCl 540 mg In 400 D5w 300 ml @ 16.667 mls/ hr IV ONCE@1630 ONE Rx#: [id number] Norepinephrine Bitartrate 80 4 mg In D5w 500 ml @ Per Protocol IV CONT NUPUR Rx# :[id number] Propofol/Emulsion 100 ml 65 @ Per Protocol IV CONT NUPUR Rx#:[id number] Vecuronium Gifford 50 mg 7 In Ns 50 ml @ As Directed IV CONT NUPUR Rx#: [id number] fentaNYL/NACL 100 ml @ 7 Per Protocol IV CONT NUPUR Rx#:[id number] Output: Urine (ml) 1250 475 Catheter 475 Urinal 1250 OG Tube Output (ml) 500 600 16 Peruvian 500 600 Other: Number of Voids Urinal 3 Number of Stools Urinal 0 Result Diagrams: 03/17/18 05:25 03/17/18 05:25 - Physical Exam Constitutional: other (INtubated, sedated) Cardiovascular: other (Tachycardic, irregulary irregular) ICD10 Worksheet Patient Problems: Problems Problem Status Onset Hypoxemia Acute Pneumonia Acute Severe sepsis Acute
[2018-03-17] MEDS: AMIODARONE HCL 200 ML IV SCH ×2 (11:38→20:44)
[2018-03-17] MEDS: LEVALBUTEROL INHALER 200 PUFFS/15 GM MDI IH SCH ×3 (11:38→19:51)
[2018-03-17] MEDS ORDERED: HYDROCORTISONE 100 MG/2 ML VIAL IVP SCH (12:00)
[2018-03-17] MEDS: DULoxetine 60 MG CAP PO SCH (12:09)
[2018-03-17] MEDS: EZETIMIBE 10 MG TAB PO SCH (12:10)
[2018-03-17] MEDS: guaiFENesin 600 MG TAB.ER PO SCH ×2 (12:10)
[2018-03-17] MEDS: INSULIN REGULAR HUMAN 100 UNIT/ML UNIT SC SCH ×3 (12:11→20:47)
[2018-03-17] MEDS ORDERED: fentaNYL/NACL 100 ML IV SCH (12:32)
[2018-03-17] MEDS ORDERED: LIDOCAINE 1% 5 ML SDV ONE (12:38)
--- NOTE | 2018-03-17 13:39 | SOAPPROG ---
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 Cr up to 3 on presentation this hospitalization that was likely due to ATN in setting of N/V, hypotension and tachycardia. Cr came down to 1.8 but now has acutely come up in the past two days to 5.7 today, acidemic, hyperkalemic, and anuric. He likely has ATN again from hemodynamic changes in setting of afib with RVR, now requiring pressors as well. - Appreciate surgery placing line. - Will start CRRT today. - Will run net even for now. - Will not use citrate. - Will continue to monitor labs closely while on CRRT. Shock: pt on pressors. Hyperkalemia: will modulate on CRRT. Metabolic acidosis: pt with persistent acidemia and pH of 7.17. - Pt on vent. - Will help modulate with CRRT. - Will follow lactate and blood gases. Hyponatremia: Na 129, will modulate on CRRT and continue to monitor. Subjective: Pt with marked deterioration since yesterday, having afib with RVR that persisted with HR in 150s-170s overnight on amiodarone ggt, starting diltiazem ggt today. Pt intubated yesterday and is on 100% FiO2. He is now on Levophed and vasopressin. He was oliguric yesterday and now anuric. Objective: Vital Signs Temp Pulse Resp BP Pulse Ox 39.5 C H 128 H 30 H 121/69 H 90 L 03/17/18 12:41 03/17/18 12:41 03/17/18 12:41 03/17/18 12:41 03/17/18 12:41 Microbiology 03/16/18 16:00 Gram Stain - Final Lung Left Lower Lobe - Bronchial Washings Laboratory Results 03/17/18 05:25 03/17/18 05:25 03/16/18 03/17/18 03/18/18 05:59 05:59 05:59 Intake Total 2300 2059 2236 Output Total 1250 975 800 Balance 1050 1084 1436 PT REJ 03/17/18 13:00 INR REJ 03/17/18 13:00 General: sedated, no acute distress OP: intubated CV: tachycardic, irr/irr Resp: intubated and on vent, coarse breath sounds Abd: Soft, NT Ext: trace edema BLE, cool extremities to touch ICD10 Worksheet Patient Problems: Problems Problem Status Onset Hypoxemia Acute Pneumonia Acute Severe sepsis Acute
[2018-03-17] MEDS ORDERED: POTASSIUM Cl (KCl) 50 ML IV PRN (14:00)
[2018-03-17] MEDS ORDERED: SODIUM PHOS 20 MM in D5W 250 ML IV PRN (14:00)
[2018-03-17] MEDS ORDERED: PRE-DILUTION FILTER SET 100 ****SEND #2 INITIALLY MISC PRN (14:00)
[2018-03-17] MEDS ORDERED: SODIUM CITRATE 4% 5 ML in SYRINGE 0 ML DIAL PRN (14:00)
[2018-03-17] MEDS ORDERED: ACCESSORY DRAIN 1 EA BAG***SEND #2 INITIALLY MISC PRN (14:00)
[2018-03-17] MEDS ORDERED: MAGNESIUM SULF 2 GM/WATER 50 ML IV PRN (14:00)
[2018-03-17] MEDS: BGK 4/2.5 PRISMASATE 5,000 ML DIAL SCH ×6 (14:36→22:28)
[2018-03-17] MEDS: NS 1,000 ML MISC SCH ×3 (14:39→23:40)
[2018-03-17 14:47] LABS: INR 2.13 (0.83-1.16); PROTIME(PATIENT) 23.9 SEC (12.0-15.0)
[2018-03-17 15:35] LABS: INR 1.97 (0.83-1.16); PROTIME(PATIENT) 22.5 SEC (12.0-15.0)
[2018-03-17 15:52] LABS: PLATELET COUNT 270 10^3/uL (150-400)
--- NOTE | 2018-03-17 16:06 | ASMTCMCOM ---
CM Note CM Note Notes: Patient having Afib with RVR and hrt rate in 150"s. Patient was vented Saturday. driving from [place] Date Signed: 03/17/2018 04:05 PM Electronically Signed By:Lulu Segovia LCSW
[2018-03-17] MEDS ORDERED: levOFLOXACIN 500 MG/DEXTROSE 100 ML IV SCH ×2 (16:30→17:00)
--- NOTE | 2018-03-17 17:16 | HOSPPROG ---
Hospitalist Progress Note Assessment/Plan: Subjective Follow-up on respiratory failure and tachycardia and Legionella pneumonia. Patient has had unfortunate decline over the past 24-36 hr. His urine Legionella antigen came back positive yesterday after and his antibiotics were changed to Levaquin. I reviewed the case today with Dr. Shekhar Santa. The case was discussed with Nephrology as well early this morning after his creatinine came back significantly elevated at 5 today up from [address] Hernandez with surgery was consulted to assist with placement of hemodialysis catheter. This was done after administration of vitamin K and FFP. Patient was started on CVVHD this afternoon. I reviewed the case as well with Dr. Marcos with cardiology who was in agreement of the addition of diltiazem. I talked with the patient's son Syed early this morning as well to update him on the significant changes. Objective Vital signs as detailed below Exam General-patient is paralyzed with no spontaneous movements he appears comfortable without any distress Heart-regular tachycardic no murmurs appreciated Lungs-mild coarseness bilaterally less significant wheezing today as compared to days prior Abdomen-soft nondistended bowel sounds present but diminished -Nielsen catheter in place with no significant urine volume Extremities-cool to touch feet and toes his skin in the lower extremities has a livedo reticularis like appearance. Upper extremities are warm to touch Labs as detailed below Assessment and Plan Acute hypoxic respiratory failure-secondary to Legionella pneumonia on top of underlying COPD. Continue current Solu-Medrol and inhalers. Further recommendations and adjustments to ventilator settings per Dr. Juarez Junior. Pneumonia-patient had initially been treated for community-acquired pneumonia with ceftriaxone. Azithromycin was held out of concern of QT prolongation. Upon receiving results of urine Legionella antigen yesterday antibiotics were adjusted to Levaquin. Dr. Santa with Infectious Disease was consulted today for further recommendations. Acute kidney injury on top of chronic kidney disease-patient has a baseline creatinine estimated somewhere around 1.5 which is secondary to his right-sided nephrectomy which was done for renal cell carcinoma. Patient has had the acute rise in his creatinine a considering his overall critical nature he was started on CVVHD today. Appreciate Nephrology assistance on the case and continue hemodialysis per the recommendations. Atrial fibrillation with rapid ventricular response-improved this afternoon after addition of diltiazem to the amiodarone. I placed his oral metoprolol on hold. No anticoagulation in light of coagulopathy. Case was reviewed with Dr. Marcos with Cardiology today. Coagulopathy-patient did receive initially upon hospitalization 5 mg of vitamin K and his INR had trended down however with addition of medications it had trended back upward. With the plan for hemodialysis catheter today 2 units of FFP and another 10 mg of subcu vitamin K was administered. Hypertension-lisinopril was held in light of rising creatinine. Patient is actually on vasopressors in light of hypotension at this time. Right renal cell carcinoma-history of. Patient is status post right-sided nephrectomy. Diabetes mellitus type 2-treating with sliding scale insulin. Hyperlipidemia-patient is on atorvastatin. DVT prophylaxis-no heparin or Lovenox in light of supratherapeutic INR. Patient is chronically anticoagulated with Coumadin. Disposition-guarded prognosis considering significant decline over the past 24- 36 hr. Objective: Vital Signs Temp Pulse Resp BP Pulse Ox 37.5 C 90 30 H 139/58 H 86 L 03/17/18 16:00 03/17/18 16:31 03/17/18 16:31 03/17/18 16:00 03/17/18 16:31 Microbiology 03/16/18 16:00 Gram Stain - Final Lung Left Lower Lobe - Bronchial Washings Laboratory Results 03/17/18 15:20 03/17/18 15:20 03/16/18 03/17/18 03/18/18 05:59 05:59 05:59 Intake Total 2300 2059 2747 Output Total 1250 975 800 Balance 1050 1084 1947 PT 22.5 SEC (12.0-15.0) H 03/17/18 15:20 INR 1.97 (0.83-1.16) H 03/17/18 15:20 ICD10 Worksheet Patient Problems: Problems Problem Status Onset Hypoxemia Acute Pneumonia Acute Severe sepsis Acute
[2018-03-17] MEDS ORDERED: DILTIAZEM HCL/D5W 125 ML IV SCH (18:00)
--- NOTE | 2018-03-17 19:31 | GCON ---
[f rep st] CONSULTATION INFECTIOUS DISEASES CONSULTATION DATE OF CONSULTATION: 03/17/2018 REFERRING PHYSICIAN: Scott Morris MD REASON FOR CONSULTATION: Severe legionella pneumonia. HISTORY OF PRESENT ILLNESS: The patient is a 68-year-old male, whom I am asked to see in consultatio n for septic shock with positive urine legionella antigen. The patient is currently intubated, and h istory is obtained entirely from the medical record and by phone with the patient's son. The patient is currently visiting from [place], [place], and was admitted on 03/13/2018, with cough, sh ortness of breath, and hypoxia with complication of atrial fibrillation and rapid ventricular respons e. The patient had developed symptoms of cough and chest congestion prior to leaving [place]. This was associated with shortness of breath and subjective fevers. Initial chest x-ray showed left upper lobe infiltrate, consistent with pneumonia. The patient was started on ceftriaxone, with addit ion of azithromycin held due to concomitant amiodarone for atrial fibrillation. The patient was star ronna on the sepsis protocol with presentation and required BiPAP for respiratory support initially. Michael medina also was noted to have acute renal failure in the setting of a solitary kidney. Admission notes no te the baseline creatinine was approximately 1.5, and this was 3.0 at time of presentation. The daysi ent was noted to have clinical improvement until yesterday when he developed worsening hypoxic respir atory failure requiring intubation. The patient underwent bronchoscopy at the time of his intubation , which showed small amounts of clot and mucus, more prominent in the right lower lobe. The patient had legionella urinary antigen return positive yesterday with a negative Streptococcus pneumoniae ant igen. He was given a dose of levofloxacin 750 mg based on positive legionella antigen. He has exper ienced progressive decline in renal function and was started on CRRT today. He is requiring Levophed and vasopressin for blood pressure support. 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 BAL legionella culture is currently pending. Blood cultures obtain ed at the time of presentation showed no growth, and a respiratory pathogen panel by PCR was negative . In discussion with the patient's son by phone, he is not noted to have a hot tub, fountain, or hav e recently spent time working on air conditioners or coolers. He did stay in a hotel in [facility], en route to [place] but was already noted to be sick. Given the above findings, I am now aske suhail to assist in his ongoing management. PAST MEDICAL HISTORY: COPD, atrial fibrillation, hypertension, hyperlipidemia, gastroesophageal refl ux, type 2 diabetes mellitus, sleep apnea. PAST SURGICAL HISTORY: Right nephrectomy, partial bladder resection for transitional cell carcinoma. CURRENT MEDICATIONS: Levofloxacin 750 mg IV x1 on 03/16/2018, with subsequent 500 mg q.48 hours sche duled; vasopressin and Levophed drips; albuterol as needed; allopurinol 300 mg p.o. daily; amiodarone drip; vitamin C 1500 mg IV q.6 hours; Lipitor 20 mg p.o. q.h.s.; vitamin D 1000 units p.o. daily; Ce doc 40 mg p.o. at bedtime (this is currently held); Cymbalta 60 mg p.o. daily (currently held); Zeti a 10 mg p.o. daily (currently held); Neurontin 300 mg p.o. q.h.s.; and Mucinex 600 mg p.o. twice aura y (held); insulin sliding scale; Xopenex 4 puffs q.i.d.; Solu-Medrol 60 mg IV q.6 hours; Nicoderm CQ 21-mg patch daily; Protonix 40 mg IV daily; thiamine 200 mg IV q.12 hours; Spiriva 18 mcg inhaled abdiaziz ly. ALLERGIES: No known drug allergies. SOCIAL HISTORY: Patient smokes 1 pack per day. The patient lives in [place], [place]. No significant alcohol intake. FAMILY HISTORY: Currently cannot be obtained. REVIEW OF SYSTEMS: Currently cannot be obtained unless otherwise noted in the HPI. PHYSICAL EXAMINATION: VITAL SIGNS: Temperature maximum 40.4, temperature current 36.5, heart rate 9 2, respiratory rate 30, blood pressure 111/51, oxygen saturation 87% on 100% FiO2. GENERAL: The pat ient is intubated and sedated. HEENT: Endotracheal tube is in place. No conjunctival injection or suffusion. No conjunctival petechiae. No nasal discharge noted. NECK: Supple. No palpable lympha denopathy. CHEST: There are coarse breath sounds bilaterally. Patient is mechanically ventilated w ith increased respiratory rate. CARDIOVASCULAR: Irregularly irregular without audible murmurs. ABD OMEN: Soft, nontender, nondistended. No palpable organomegaly. Bowel sounds are hypoactive. MUSCU LOSKELETAL: 1+ lower extremity edema bilaterally. There are cyanotic changes of the toes and ears. SKIN: Changes of livedo reticularis are present over the left thigh greater than the right thigh an d along the right lower abdominal wall around nephrectomy scar. Skin is cool in the periphery throug hout. No stigmata of endocarditis. NEUROLOGIC: Patient is intubated and sedated. LYMPHATICS: No cervical or supraclavicular nodes. No inguinal nodes. : Nielsen catheter is in place. LABORATORY DATA: White blood cell count 15.5, hematocrit 25.8, platelets 270, neutrophils 62%, bands 31%. Serum creatinine is 5.9, lactic acid is 2.8, AST 574, ALT 164, bilirubin 1.9, alkaline phospha tase 114. Procalcitonin at time of presentation 4.6, albumin 3.0. INR 1.97 (peak 12.92 at time of p resentation). ABG shows pH of 7.18. Urine legionella antigen is positive. Urine Streptococcus pneu moniae antigen is negative. Legionella culture from BAL is pending. Blood cultures x2 sets on 03/13, are no growth. Respiratory PCR panel on 03/13/2018, is no growth. BAL shows growth of Candid a albicans. Blood cultures, 03/17/2018, are pending. CT scan of chest at time of presentation shows dense left upper lobe consolidation. Chest x-ray currently shows bilateral diffuse infiltrates. EK G shows QTc of 0.47. IMPRESSION: Septic shock due to severe legionella pneumonia: Clinical findings and progression are consistent with severe legionella. Current treatment/recommendations include either use of levofloxa sandi or azithromycin. Either agent has potential for QT prolongation, which will need to be monitored . Await bronchoalveolar lavage culture as available. Continue treatment of septic shock as is omero noguera ongoing. We will modify levofloxacin dosing to 500 mg intravenous q.24 hours with continuous re nal replacement therapy, as would favor more aggressive dosing with legionella. Other consideration would be for superimposed nosocomial infection, although suspect this will be left likely; we will no t add additional antibiotics for this purpose unless dictated by blood culture findings. RECOMMENDATIONS: 1. Levofloxacin 750 mg IV x1 (given 03/16/2018), followed by 500 mg IV q.24 hours while on CRRT. 2. Follow up repeat blood cultures as available. 3. Continued supportive care for septic shock. 4. Follow QT interval while on levofloxacin and amiodarone. 5. Discontinue ceftriaxone based on positive legionella antigen. Thank you for this consultation. We will continue to follow the patient with you. /[id number]/MODL
[2018-03-17] MEDS ORDERED: NA BICARBONATE 50 MEQ/50 ML VIAL ONE ×2 (20:34→21:19)
[2018-03-17] MEDS ORDERED: CALCIUM GLUCONATE 2 GM in D5W 50 ML IV ONE (21:30)
--- NOTE | 2018-03-17 21:53 | POSTOPPROG ---
Post Op Note Date of Operation: 03/17/18 Surgeon: Kulwant Hernandez [employer] Director: None Anesthesia: Local (Specify) Pre-op Diagnosis: Renal failure Post-op Diagnosis: Same Procedure: Right IJ dialysis catheter placement Findings: Good placement in the right IJ good drawn flush Inf/Abcess present in the surg proc area at time of surgery?: No EBL: Minimal
[2018-03-17 22:10] LABS: PLATELET COUNT 240 10^3/uL (150-400)
--- NOTE | 2018-03-17 22:32 | GOP ---
[f rep st] OPERATIVE REPORT DATE OF OPERATION: SURGEON: Kulwant Hernandez MD ANESTHESIA: Local anesthetic with 1% xylocaine plain. PREOPERATIVE DIAGNOSIS: Renal failure. POSTOPERATIVE DIAGNOSIS: Renal failure. PROCEDURE PERFORMED: Right internal jugular triple-lumen dialysis catheter placement, 12-Vietnamese ultr asound guided needle placement. FINDINGS: Good draw and flush, both ports. Postprocedure chest x-ray shows good placement in the panchal perior vena cava/right atrial junction. No pneumothorax. INDICATIONS: This is a 68-year-old gentleman who is in acute renal failure. He is intubated in the ICU with worsening renal failure. Asked to place a dialysis catheter. His INR is 9. He has been gi abraham 2 units of FFP in anticipation of line placement, and parameters have been set by Nephrology. DESCRIPTION OF PROCEDURE: Patient is placed in a semi recumbent position, and his neck is prepped wi th chlorhexidine and draped sterilely. Time-out procedure is performed according to institutional st andards. Local anesthetic is infused in skin and subcutaneous tissues. Ultrasound guidance is used to identif y and puncture the internal jugular vein with a single stick of an 18-gauge needle. Wire is passed, and sterile Seldinger technique is used to maintain access. The tract is dilated serially, and then a 12-Vietnamese catheter is then placed into the hub. 20 cm catheter is used and secured in place. Biop atch is placed as well as a sterile Opsite. Good drawn flush is noted in all three ports, and saline is used to flush the wells as he is going for imminent dialysis. The patient tolerates the procedur e well. Postop chest x-ray shows good position and no signs of complications. /[id number]/MODL
[2018-03-18] MEDS: INSULIN REGULAR HUMAN 100 UNIT/ML UNIT SC SCH ×2 (00:44→04:27)
[2018-03-18] MEDS: BGK 4/2.5 PRISMASATE 5,000 ML DIAL SCH ×4 (02:11→04:58)
[2018-03-18] MEDS: NS 1,000 ML MISC SCH ×2 (02:58→03:57)
[2018-03-18 03:15] LABS: PLATELET COUNT 240 10^3/uL (150-400)
[2018-03-18] MEDS: ASCORBIC ACID 1,500 MG in D5W 100 ML IV SCH (03:17)
[2018-03-18 03:23] LABS: INR 1.9 (0.83-1.16); PROTIME(PATIENT) 21.9 SEC (12.0-15.0)
[2018-03-18] MEDS ORDERED: SODIUM BICARBONATE 50 MEQ/50 ML SYR ONE ×3 (03:54→08:15)
[2018-03-18] MEDS: SODIUM BICARBONATE 150 MEQ in D5W 1,000 ML IV SCH (03:56)
[2018-03-18] MEDS: NOREPINEPHRINE BITARTRATE 4 MG in D5W 500 ML IV SCH (03:56)
[2018-03-18] MEDS: LEVALBUTEROL INHALER 200 PUFFS/15 GM MDI IH SCH (04:00)
[2018-03-18] MEDS: methylPREDNISolone SOD SUCC 125 MG/2 ML VIAL IVP SCH (05:44)
[2018-03-18 06:13] VITALS: BP 84/52
--- NOTE | 2018-03-18 07:22 | PCMIDPN ---
Assessment/Plan: Septic Shock likely due to Legionella PNA. Ongoing severe hypoxia on max vent support, pressor dependence, significant cutaneous evidence of DIC with diffuse hemorrhagic mottling, unresponsive off pressors, renal failure on CRRT. Patient on appropriate antibiotic therapy, high dose levofloxacin without significant improvement, overall poor prognosis --continue levofloxacin 500mg daily dosed for CRRT --noted interaction between amiodarone/levoflox, acceptable risk because levoflox best therapy for severe Legionella meds levoflox #2 CXR diffuse infiltrate c/w ARDS micro 03/13 blood cx (2) NGTD 03/17 blood cx (2) NGTD Subjective: no specific changes overnight sedation stopped overnight and patient remains unresponsive Objective: Vital Signs Temp Pulse Resp BP Pulse Ox 36 C 91 34 H 84/52 L 84 L 03/18/18 06:00 03/18/18 06:00 03/18/18 06:00 03/18/18 06:00 03/18/18 06:00 Microbiology 03/16/18 16:00 Gram Stain - Final Lung Left Lower Lobe - Bronchial Washings Laboratory Results 03/18/18 03:05 03/18/18 05:55 03/17/18 03/18/18 03/19/18 05:59 05:59 05:59 Intake Total 2059 3310 Output Total 975 1061 Balance 1084 2249 Gen: unresponsive male with diffuse hemorrhagic mottling HEENT: poor dentition, dry MM, ETT CV: distant heart sounds RR Chest: course BS diffuse Abd: soft but has sense of fullness, query ascites, no bowel sounds R IJ HD cath Diffuse mottling and anasarca ICD10 Worksheet Patient Problems: Problems Problem Status Onset Hypoxemia Acute Pneumonia Acute Severe sepsis Acute
[2018-03-18] MEDS ORDERED: D50W 25 GM/50 ML SYR IVP ONE (08:03)
[2018-03-18] MEDS ORDERED: NA BICARBONATE 50 MEQ/50 ML VIAL ONE (08:12)
[2018-03-18] MEDS ORDERED: CALCIUM CHLORIDE 1 GM/10 ML INJ ONE (08:15)
[2018-03-18] MEDS ORDERED: EPINEPHrine 1 MG/10 ML SYR IVP ONE (08:15)
--- NOTE | 2018-03-18 09:19 | PDCODEBLUE ---
Code Blue Note Code blue called when rhythm showed wide-complex and then asystole. Pt is a 68 y/o male critically ill septic shock from Legionella PNA on pressors , and SUJATA on CRRT started yesterday. K this morning 7.5 CPR was initiated Epi given along with bicarb regular insulin, D50, calcium. Repeat Istat K >9, thus repeat bicarb, insulin. Had 5 captured beats throughout code.Despite multiple rounds of CPR, medications, could not obtain rhythm. After > 30 minutes, Dr. Monique, myself and I decided to discontinue resuscitation. and son were bedside and agreed. Physical exam: Gen: ill-appearing HEENT: ETT in place CV: no palpable pulse Skin: mottled, jaundiced Lungs: coarse anteriorly Critical care time spent: 45 min participating in [place], d/w family
--- NOTE | 2018-03-18 09:45 | ASDISCHSUM ---
Discharge Information Plan Status: Medically Cleared to Leave: Discharge Date: CM D/C Disposition: ADT D/C Disposition: Projected Discharge Date:03/18/2018 12:00 AM Transportation at D/C: Discharge Delay Reason: Follow-Up Date:03/18/2018 12:00 AM Discharge Slot: Final Diagnosis:ARDS, Legionella PNA, Septic shock, SUJATA Placement Information Patient Contact Information Contact Name:JOSÉ MIGUEL Relationship: Address:[address] Phone: City:[facility] Phone: State/Zip Code:[place] [address] Email: Financial Information Financial Class:HMO and PPO Plans Primary Plan Desc: OUT OF STATE PPO Primary Plan Number:[id number] Secondary Plan Desc:MEDICARE INPATIENT Secondary Plan Number:[id number] Assessment Information [facility] CM Progress Note CM Note CM Note Notes: Patient visiting [place] from [place]. He was feeling unwell before they made the trip and now has PNA. He has a significant renal and cardiac medical hx including solitary kidney, AFib, and CAD. He is being followed closely by RT and pulmonology. He is here with his and their son. I don't anticipate any Case Management needs, but we will follow. Date Signed: 03/14/2018 09:11 AM Electronically Signed By:Ruby Hearn RN [facility] CM Progress Note CM Note CM Note Notes: Patient having Afib with RVR and hrt rate in 150"s. Patient was vented Saturday. driving from [place] Date Signed: 03/17/2018 04:05 PM Electronically Signed By:Lulu Segovia LCSW Intervention Information
--- NOTE | 2018-03-18 09:45 | ASMTLACE ---
LACE Length of stay for Answers: 4-6 days current admission Comorbidities - select Answers: Any tumor (including all that apply lymphoma or leukemia) Chronic pulmonary disease Diabetes (uncontrolled or controlled) Other Notes: Atrial fibrillation; HT N # of Emergency department Answers: 1-2 visits in the last 6 months Score: 11 Date Signed: 03/18/2018 09:44 AM Electronically Signed By:Lulu Segovia LCSW
[2018-03-18] MEDS ORDERED: levOFLOXACIN 500 MG/DEXTROSE 100 ML IV SCH (10:00)
--- NOTE | 2018-03-18 14:57 | PDDCSUM ---
Discharge Summary Discharge Summary: Summary Dates of service: 03/13-03/18/18 Of note, patient prior to my ever having seen or evaluated this patient and therefore this history is obtained entirely from chart review and discussion with physicians previously involved in patients care. Consultations: pulmonary/critical care, cardiology, infectious disease, nephrology Procedures: echocardiogram, chest CT, PICC line placement, Endotracheal intubation, bronchoscopy, CRRT, HD catheter placement Hospital course by problem: Patient 68 yo M with hx of RCC and s/p nephrectomy presenting with CAP ultimately found to be 2/2 legionella with progressive respiratory failure requiring intubation, septic shock and renal failure ultimately leading to asystolic arrest and despite CPR attempts. # AHRF: 2/2 legionella pna with underlying copd and copd exacerbation. Required mechanical intubation and paralysis with progressively worsening bilateral opacities throughout hospital stay. # septic shock: 2/2 pna as next, patient did continue to decline despite NE ultimately requiring CPR for asystolic arrest # legionella pna: initial presentation, treated for CAP with CTX as monotherapy initially with concerns of starting azithro out of concerns for QT prolongation. Levofloxacin added after legionella Ag came back positiive. # vika on ckd: in the setting of shock as above, started on CRRT but with continued rise in creatinine and K prior to arrest # a fib w/rvr: cardiology involved, rates were improved with diltiazem and amiodarone # coagulopathy: likely developing DIC in the setting of shock, had received vitamin k, ffp with ongoing elevation in inr # HTN: chronic issue but not treated during this hospitalization given shock requiring pressors # DM2: tx with SSI # hx of RCC: s/p R sided nephrectomy Patient in ICU following resuscitation efforts--please see Code Blue note as well as Cardiology consult note for further details Family was present at bedside, they were supported by staff and spiritual care services.
--- NOTE | 2018-03-18 19:04 | GCON ---
[f rep st] CONSULTATION DATE OF CONSULTATION: 03/18/2018 This is a note placed for purposes of documenting 1 hour of critical care time, as well as part of a cardiac arrest. COMMENTS: I was asked to see the patient after a code blue was called to help evaluate his clinical status and to try to resuscitate him post cardiac arrest. At the time of my arrival, the patient was intubated and unresponsive, receiving active CPR at the time of my arrival. It was noted that the p atient was suffering from a bilateral pneumonia, suspected to be caused by Legionella, as well as sub sequent multisystem organ failure with evidence of renal failure on hemodialysis, with history of jamarcus or nephrectomy for renal cell carcinoma, also with evidence of liver failure. Basically, the patient was visiting in [place] to see his son and became ill and was admitted to the hospital on 03/13 with a pneumonia and suffered from respiratory failure, requiring intubation. His hospital course was co mplicated by the subsequent development of multi-system organ failure, and on the day preceding his a rrest, the patient's potassium continued to climb in spite of aggressive intervention and hemodialysi s with CVVHD, resulting in elevated potassium levels and significant acidosis, which was refractory t o clinical management. The patient was also hypotensive and requiring multiple pressors for pressor support. At the time of my arrival, a quick check of the patient's rhythm noted that he was asystoli c with a non-perfusing agonal ventricular escape rhythm at rates less than 20 beats per minute. CPR was immediately continued, and then I spent another 40 minutes attempting to resuscitate the patient with multiple ICU team members. ACLS protocols were followed. Multiple rounds of glucose and insuli n were given to try to help drive his potassium lower. We also obtained i-STAT measurements of his p otassium, noting his potassium level to be greater than 9 on one of the measurements. There was 1 ep isode of what we thought might be fine VFib, for which he received an electrical countershock at 300 joules of biphasic counter energy delivered with the patches in the anterior and left lateral positio n without effect on the cardiac rhythm. Effective CPR was given throughout the code. The patient re ceived multiple rounds of epinephrine and bicarbonate to try to treat his acid-base imbalance to no a vail, and ultimately, the patient was pronounced at 8:28 on 03/18/2018. Final outcome of the re suscitation efforts was that the patient was pronounced and asystolic secondary to sepsis and mu ltisystem organ failure, along with renal failure and severe and refractory metabolic acidosis and hy perkalemia. /[id number]/MODL
== END 2018-03-18 08:28 | disposition expired | DRG 871 ==
LOC: OBSVTOIN 10:59 → F2W 12:56 → F2N 19:40
PROVIDERS: ADMIT Family Medicine; ATTEND Family Medicine
PROC: 30233R1 Transfusion of Nonautologous Platelets into Peripheral Vein, Percutaneous Approach (ICD-10-PCS; 2018-03-13)
PROC: 0BH18YZ Insertion of Other Device into Trachea, Via Natural or Artificial Opening Endoscopic (ICD-10-PCS; principal; 2018-03-16)
PROC: 5A1945Z Respiratory Ventilation, 24-96 Consecutive Hours (ICD-10-PCS; principal; 2018-03-16)
PROC: 0B9 Respiratory System, Drainage (ICD-10-PCS; principal; 2018-03-16)
PROC: 0B9 Respiratory System, Drainage (ICD-10-PCS; principal; 2018-03-16)
PROC: 02HV33Z Insertion of Infusion Device into Superior Vena Cava, Percutaneous Approach (ICD-10-PCS; 2018-03-16)
PROC: 5A1D70Z Performance of Urinary Filtration, Intermittent, Less than 6 Hours Per Day (ICD-10-PCS; 2018-03-17)
PROC: 02HV33Z Insertion of Infusion Device into Superior Vena Cava, Percutaneous Approach (ICD-10-PCS; 2018-03-17)
DX: A41.89 Other specified sepsis (principal); R65.21 Severe sepsis with septic shock; A48.1 Legionnaires' disease; J96.01 Acute respiratory failure with hypoxia; I50.9 Heart failure, unspecified; J44.1 Chronic obstructive pulmonary disease with (acute) exacerbation; I46.8 Cardiac arrest due to other underlying condition; I13.0 Hypertensive heart and chronic kidney disease with heart failure and stage 1 through stage 4 chronic kidney disease, or unspecified chronic kidney disease; N18.3 Chronic kidney disease, stage 3 (moderate); N17.9 Acute kidney failure, unspecified; E11.22 Type 2 diabetes mellitus with diabetic chronic kidney disease; D68.4 Acquired coagulation factor deficiency; T45.515A Adverse effect of anticoagulants, initial encounter; E87.1 Hypo-osmolality and hyponatremia; I48.91 Unspecified atrial fibrillation; E87.2 Acidosis; I25.10 Atherosclerotic heart disease of native coronary artery without angina pectoris; G47.33 Obstructive sleep apnea (adult) (pediatric); K21.9 Gastro-esophageal reflux disease without esophagitis; E78.5 Hyperlipidemia, unspecified; Z79.01 Long term (current) use of anticoagulants; Z85.51 Personal history of malignant neoplasm of bladder; Z85.528 Personal history of other malignant neoplasm of kidney; Z90.5 Acquired absence of kidney; Z96.642 Presence of left artificial hip joint; Z96.651 Presence of right artificial knee joint; F17.210 Nicotine dependence, cigarettes, uncomplicated
CPT/HCPCS: 82435-PO; 82565-PO; 82947-PO; 83605-PO; 84132-PO; 84295-PO; 84484-PO; 84520-PO; 85014-PO; 87070-90; 87449-90; 96374; C1751; J0282; J0610; J0696; J1815; J1940; J1956; J2060; J2250; J2270; J2704; J2930; J3010; J3411; J3430; P9016; P9017